=== PATIENT | male | born 1955 | race Caucasian/White ===

== ENCOUNTER 2017-01-16 17:46 | Emergency (ER) | payer BC ==
[2017-01-16 17:58] VITALS: BP 145/79
[2017-01-16] MEDS ORDERED: Sodium Chloride 0.9% 1,000 ML IV STA (18:13)
[2017-01-16] MEDS ORDERED: Sodium Chloride 0.9% 10 ML Syringe FLUSH PRN (18:13)
[2017-01-16] MEDS ORDERED: Insulin Regular, Human 100 Units/ML 3 ML Vial SUBCUT ONE (18:15)
--- NOTE | 2017-01-16 19:06 | EDM.PDOC ---
ED HPI GENERAL MEDICAL PROBLEM - General Chief Complaint: Diabetic Complaint Stated Complaint: HIGH BLOOD SUGAR Time Seen by Provider: 01/16/17 18:06 Source of Information: Reports: Patient History Limitations: Reports: No Limitations - History of Present Illness INITIAL COMMENTS - FREE TEXT/NARRATIVE: The patient presents with hyperglycemia. About 2 weeks ago he was diagnosed with type II diabetes and he was put on metformin. Before that he was put on steroids for some breathing issues and after that his blood sugar was elevated and he developed diabetes. He was admitted to a hospital in [place]. He has not been able to get his blood sugar below 200. It was about 360 earlier today and it is now 290. He has some blurred vision at times. He has thirst and he is urinating more often at times. He has no headache, chest pain or shortness of breath. He has no abdominal pain, nausea or vomiting. Onset: Gradual Duration: Week(s): Improves with: Reports: None Worsens with: Reports: None Associated Symptoms: Reports: No Other Symptoms - Related Data Allergies Allergy/AdvReac Type Severity Reaction Status Date / Time No Known Allergies Allergy Verified 01/16/17 17:58 Home Meds: Home Meds Aspirin 81 mg PO BRK 11/18/15 [History] Lisinopril/Hydrochlorothiazide [Lisinopril-Hctz 20-12.5 mg Tab] 20 mg PO DAILY 11/18/15 [History] Acyclovir 800 mg PO QID 01/16/17 [History] Apixaban [Eliquis] 5 mg PO BID 01/16/17 [History] Diltiazem HCl [Cardizem] 120 mg PO DAILY 01/16/17 [History] metFORMIN [Glucophage XR] 500 mg PO BID 01/16/17 [History] Past Medical History HEENT History: Reports: Impaired Vision Other HEENT History: glasses Cardiovascular History: Reports: Afib, Hypertension Respiratory History: Reports: Asthma Genitourinary History: Reports: Other (See Below) Other Genitourinary History: trouble urinating Musculoskeletal History: Reports: Arthritis Psychiatric History: Reports: Anxiety Endocrine/Metabolic History: Reports: Diabetes, Type II - Infectious Disease History Infectious Disease History: Reports: Shingles - Past Surgical History HEENT Surgical History: Reports: Other (See Below) GI Surgical History: Reports: Cholecystectomy, Hernia, Abdominal Musculoskeletal Surgical History: Reports: ORIF Social & Family History - Family History Family Medical History: Noncontributory - Tobacco Use Smoking Status *Q: Never Smoker Years of Tobacco use: 1 Packs/Tins Daily: 0.5 Used Tobacco, but Quit: Yes Month Tobacco Last Used: 1976 Second Hand Smoke Exposure: No - Caffeine Use Caffeine Use: Reports: Coffee - Alcohol Use Days Per Week of Alcohol Use: 7 Number of Drinks Per Day: 2 Total Drinks Per Week: 14 - Recreational Drug Use Recreational Drug Use: No Recreational Drug Type: Reports: Cocaine, Marijuana/Hashish Recreational Drug Use Frequency: Not Used In Over 6 Months Recreational Drug Last Use: 2008 - Living Situation & Occupation Living situation: Reports: Single, with Significant Other Occupation: Employed ED ROS GENERAL - Review of Systems Review Of Systems: See Below Constitutional: Reports: No Symptoms HEENT: Reports: Other (Blurred vision at times) Respiratory: Reports: No Symptoms Cardiovascular: Reports: No Symptoms Endocrine: Reports: Fatigue, High Glucose, Polydypsia, Polyuria GI/Abdominal: Reports: No Symptoms : Reports: No Symptoms Musculoskeletal: Reports: No Symptoms ED EXAM GENERAL NO PERIP PULSE - Physical Exam Exam: See Below Exam Limited By: No Limitations General Appearance: Alert, No Apparent Distress Ears: Normal External Exam Nose: Normal Inspection Head: Atraumatic, Normocephalic Neck: Normal Inspection Respiratory/Chest: No Respiratory Distress, Lungs Clear, Normal Breath Sounds Cardiovascular: Regular Rate, Rhythm, No Edema, No Murmur GI/Abdominal: Soft, Non-Tender, No Organomegaly, No Mass Back Exam: Normal Inspection Extremities: Normal Inspection Neurological: Alert, Oriented, No Motor/Sensory Deficits Course - Vital Signs Last Recorded V/S: Last Vital Signs Temp 97.4 F 01/16/17 17:52 Pulse 76 01/16/17 17:52 Resp 16 01/16/17 17:52 BP 145/79 H 01/16/17 17:52 Pulse Ox 95 01/16/17 17:52 - Orders/Labs/Meds Orders: Active Orders 24 hr Category Date Time Status Accu Check [Blood Glucose Check, Bedside] [RC] ONETIME Care 01/16/17 19:13 Active Accu Check [Blood Glucose Check, Bedside] [RC] ONETIME Care 01/16/17 20:06 Active Peripheral IV Care [RC] . DIRECTED Care 01/16/17 18:13 Active Insulin Regular, Human [HumuLIN R] Med 01/17/17 06:00 Active 3 unit SUBCUT BIDAC Sodium Chloride 0.9% [Saline Flush] Med 01/16/17 18:13 Active 10 ml FLUSH ASDIRECTED PRN Peripheral IV Insertion Adult [OM.PC] Stat Oth 01/16/17 18:13 Ordered Medication Orders Insulin Human Regular (Humulin R) 3 unit SUBCUT BIDAC SYDNEY PRN Reason: Protocol Last Admin: 01/16/17 19:30 Dose: 3 units Sodium Chloride (Saline Flush) 10 ml FLUSH ASDIRECTED PRN PRN Reason: Keep Vein Open Last Admin: 01/16/17 18:31 Dose: 10 ml Labs: Laboratory Tests 01/16/17 01/16/17 01/16/17 Range/Units 17:55 18:14 18:25 WBC 8.63 (4.23-9.07) K/mm3 RBC 4.28 L (4.63-6.08) M/mm3 Hgb 13.6 L (13.7-17.5) gm/L Hct 39.1 L (40.1-51.0) % MCV 91.4 (79.0-92.2) fl MCH 31.8 (25.7-32.2) pg MCHC 34.8 (32.2-35.5) g/dl RDW Std Deviation 47.2 H (35.1-43.9) fL Plt Count 149 L (163-337) K/mm3 MPV 11.2 (9.4-12.3) fl Neut % (Auto) 69.1 H (34.0-67.9) % Lymph % (Auto) 18.2 L (21.8-53.1) % [place] % (Auto) 11.5 (5.3-12.2) % Eos % (Auto) 0.8 (0.8-7.0) Baso % (Auto) 0.2 (0.1-1.2) % Neut # (Auto) 5.96 H (1.78-5.38) K/mm3 Lymph # (Auto) 1.57 (1.32-3.57) K/mm3 [place] # (Auto) 0.99 H (0.30-0.82) K/mm3 Eos # (Auto) 0.07 (0.04-0.54) K/mm3 Baso # (Auto) 0.02 (0.01-0.08) K/mm3 VBG pH 7.42 H (7.30-7.40) Sodium (136-145) mEq/L Potassium (3.5-5.1) mEq/L Chloride (98-107) mEq/L Carbon Dioxide (21-32) mEq/L Anion Gap (5-15) BUN (7-18) mg/dL Creatinine (0.7-1.3) mg/dL Est Cr Clr Drug Dosing mL/min Estimated GFR (MDRD) (>60) mL/min BUN/Creatinine Ratio (14-18) Glucose (80-115) mg/dL POC Glucose 290 H (80-115) mg/dL Serum Osmolality (280-300) mosm/kg Calcium (8.5-10.1) mg/dL Total Bilirubin (0.2-1.0) mg/dL AST (15-37) U/L ALT (16-63) U/L Alkaline Phosphatase (46-116) U/L Total Protein (6.4-8.2) g/dl Albumin (3.4-5.0) g/dl Globulin gm/dL Albumin/Globulin Ratio (1-2) Ketones (0.0-0.3) mM 01/16/17 01/16/17 01/16/17 Range/Units 18:25 18:25 19:16 WBC (4.23-9.07) K/mm3 RBC (4.63-6.08) M/mm3 Hgb (13.7-17.5) gm/L Hct (40.1-51.0) % MCV (79.0-92.2) fl MCH (25.7-32.2) pg MCHC (32.2-35.5) g/dl RDW Std Deviation (35.1-43.9) fL Plt Count (163-337) K/mm3 MPV (9.4-12.3) fl Neut % (Auto) (34.0-67.9) % Lymph % (Auto) (21.8-53.1) % [place] % (Auto) (5.3-12.2) % Eos % (Auto) (0.8-7.0) Baso % (Auto) (0.1-1.2) % Neut # (Auto) (1.78-5.38) K/mm3 Lymph # (Auto) (1.32-3.57) K/mm3 [place] # (Auto) (0.30-0.82) K/mm3 Eos # (Auto) (0.04-0.54) K/mm3 Baso # (Auto) (0.01-0.08) K/mm3 VBG pH (7.30-7.40) Sodium 134 L (136-145) mEq/L Potassium 3.6 (3.5-5.1) mEq/L Chloride 98 (98-107) mEq/L Carbon Dioxide 28 (21-32) mEq/L Anion Gap 11.6 (5-15) BUN 16 (7-18) mg/dL Creatinine 1.1 (0.7-1.3) mg/dL Est Cr Clr Drug Dosing 68.23 mL/min Estimated GFR (MDRD) > 60 (>60) mL/min BUN/Creatinine Ratio 14.5 (14-18) Glucose 326 H (80-115) mg/dL POC Glucose 260 H (80-115) mg/dL Serum Osmolality 302 H (280-300) mosm/kg Calcium 9.1 (8.5-10.1) mg/dL Total Bilirubin 0.4 (0.2-1.0) mg/dL AST 60 H (15-37) U/L ALT 158 H (16-63) U/L Alkaline Phosphatase 62 (46-116) U/L Total Protein 6.6 (6.4-8.2) g/dl Albumin 3.0 L (3.4-5.0) g/dl Globulin 3.6 gm/dL Albumin/Globulin Ratio 0.8 L (1-2) Ketones 0.225 (0.0-0.3) mM Meds: Medications Generic Name Dose Route Start Last Admin Trade Name Freq PRN Reason Stop Dose Admin Insulin Human Regular 3 unit 01/17/17 06:00 01/16/17 19:30 Humulin R SUBCUT 3 units BIDAC SYDNEY Administration Protocol Sodium Chloride 10 ml 01/16/17 18:13 01/16/17 18:31 Saline Flush FLUSH 10 ml ASDIRECTED PRN Administration Keep Vein Open Discontinued Medications Generic Name Dose Route Start Last Admin Trade Name Naeem PRN Reason Stop Dose Admin Sodium Chloride 1,000 mls @ 1,000 mls/hr 01/16/17 18:13 01/16/17 18:27 Normal Saline IV 01/16/17 19:12 1,000 mls/hr .BOLUS STA Administration Insulin Human Regular 4 unit 01/16/17 18:15 01/16/17 18:24 Humulin R SUBCUT 01/16/17 18:16 4 unit ONETIME ONE Administration Protocol - Re-Assessments/Exams Free Text/Narrative Re-Assessment/Exam: 01/16/17 19:12 I ordered an IV NS 1L bolus, insulin R 4 units subcutaneous, and labs. His CBC was negative. His pH was elevated at 7.42. His Na was a little low at 134. His glucose was elevated at 326. His serum osmolality was slightly elevated at 302. His AST was elevated at 60 and ALT was elevated at 158. His serum ketones were negative at 0.225. 01/16/17 20:06 His repeat blood sugar was 260. I will refer him to the oil spraying machine operator. I gave him more insulin R 3mgs subcutaneous. I will recheck his sugar soon and discharge him on more metformin and a oil spraying machine operator consult. 01/16/17 20:12 His repeat blood sugar was 213. Departure - Departure Time of Disposition: 20:20 Disposition: Home, Self-Care 01 Condition: Good Clinical Impression: Diabetes mellitus Qualifiers: Diabetes mellitus type: type 2 Diabetes mellitus complication status: without complication Diabetes mellitus intermediate insulin use: without intermediate use Qualified Code(s): E11.9 - Type 2 diabetes mellitus without complications - Discharge Information Instructions: Type 2 Diabetes Mellitus, Adult, [id number] Referrals: Doyle Thornton Jr, MD [Primary Care Provider] - Forms: ED Department Discharge Additional Instructions: Take 1,000mgs of metformin at night or 2 pills. Keep taking the 500mg or 1 pill in the morning. Continue with the rest of you medications as prescribed. I have put an order in to the oil spraying machine operator for a consult. She should call you with a time. Follow up with Dr Thornton within 1 week. - My Orders Last 24 Hours: My Active Orders 01/16/17 18:13 Peripheral IV Care [RC] . DIRECTED Sodium Chloride 0.9% [Saline Flush] 10 ml FLUSH ASDIRECTED PRN Peripheral IV Insertion Adult [OM.PC] Stat 01/16/17 19:13 Accu Check [Blood Glucose Check, Bedside] [RC] ONETIME 01/16/17 20:06 Accu Check [Blood Glucose Check, Bedside] [RC] ONETIME 01/17/17 06:00 Insulin Regular, Human [HumuLIN R] 3 unit SUBCUT BIDAC - Assessment/Plan Last 24 Hours: My Active Orders 01/16/17 18:13 Peripheral IV Care [RC] . DIRECTED Sodium Chloride 0.9% [Saline Flush] 10 ml FLUSH ASDIRECTED PRN Peripheral IV Insertion Adult [OM.PC] Stat 01/16/17 19:13 Accu Check [Blood Glucose Check, Bedside] [RC] ONETIME 01/16/17 20:06 Accu Check [Blood Glucose Check, Bedside] [RC] ONETIME 01/17/17 06:00 Insulin Regular, Human [HumuLIN R] 3 unit SUBCUT BIDAC
[2017-01-17] MEDS ORDERED: Insulin Regular, Human 100 Units/ML 3 ML Vial SUBCUT SCH (06:00)
== END 2017-01-16 20:22 | disposition home or self-care (01) ==
LOC: JD.ED 17:46
DX: E11.65 Type 2 diabetes mellitus with hyperglycemia (principal); I48.91 Unspecified atrial fibrillation; I10 Essential (primary) hypertension; J45.909 Unspecified asthma, uncomplicated; M19.90 Unspecified osteoarthritis, unspecified site; F41.9 Anxiety disorder, unspecified; Z79.84 Long term (current) use of oral hypoglycemic drugs; Z79.82 Long term (current) use of aspirin; Z79.899 Other long term (current) drug therapy; Z90.49 Acquired absence of other specified parts of digestive tract; Z98.890 Other specified postprocedural states
CPT/HCPCS: 36415; 80053; 82009; 82800; 82962; 83930; 85025; 96360; 96361; 96372; 99284; J1817; J7040; J7050; 99283

== ENCOUNTER 2017-01-21 21:27 | Emergency (ER) | payer BC ==
[2017-01-21 22:09] VITALS: BP 101/68
[2017-01-21] MEDS ORDERED: Sodium Chloride 0.9% 1,000 ML IV SCH (22:15)
--- NOTE | 2017-01-21 22:18 | EDM.PDOC ---
ED HPI GENERAL MEDICAL PROBLEM - General Chief Complaint: Neuro Symptoms/Deficits Stated Complaint: DIZZY,SICK TO STOMACH JUST DIAG WITH DIABETIES Time Seen by Provider: 01/21/17 22:13 Source of Information: Reports: Patient History Limitations: Reports: No Limitations - History of Present Illness INITIAL COMMENTS - FREE TEXT/NARRATIVE: 61-year-old male presents to the ED with generalized sense of feeling unwell. Note he was admitted the hospital a few weeks ago and diagnosed with new onset type 2 diabetes with a blood sugar of over 631 and he was also in atrial fibrillation with a heart rate of greater than 170. Inverted back to sinus rhythm about 2-1/2 days into his hospital stay on a Cardizem drip. 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 He attended the ED because he felt unwell developed diaphoresis nausea and weakness possibly representing a hypoglycemic reaction. He hasn't been doing a lot of exercise since discharge from hospital. He is on a very strict diet and he states she's lost 15 pounds of weight on the diabetic diet in the last couple of weeks. He is currently on metformin 1 g at bedtime and 500 mg in the morning and also was started on new medication on Monday by Dr. Thornton half a pill twice a day for his pancreas I presume it's a diabetic medication he doesn't know the name of it. Blood sugar this morning was 118 and this afternoon it went up to 147 and it was 180 after he ate tonight. Blood sugar in the department was 150. Orthostatic blood pressures are normal. Onset: Today, Sudden Onset Date: 01/21/17 Onset Time: 21:30 Duration: Minutes:, Improving Location: Reports: Generalized (Generalized sense of unwellness with weakness dizziness nausea etc. This occurred while he is in the workplace as a boilerhouse mechanic. He did not feel he was overdoing it as far as muscular work. 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 01/22/17 [Rx] Past Medical History HEENT History: Reports: Impaired Vision Other HEENT History: glasses Cardiovascular History: Reports: Afib, Hypertension Respiratory History: Reports: Asthma Genitourinary History: Reports: Other (See Below) Other Genitourinary History: trouble urinating Musculoskeletal History: Reports: Arthritis Psychiatric History: Reports: Anxiety Endocrine/Metabolic History: Reports: Diabetes, Type II - Infectious Disease History Infectious Disease History: Reports: Shingles - Past Surgical History HEENT Surgical History: Reports: Other (See Below) GI Surgical History: Reports: Cholecystectomy, Hernia, Abdominal Musculoskeletal Surgical History: Reports: ORIF Social & Family History - Family History Family Medical History: Noncontributory - Tobacco Use Smoking Status *Q: Never Smoker Years of Tobacco use: 1 Packs/Tins Daily: 0.5 Used Tobacco, but Quit: Yes Month Tobacco Last Used: 1976 Second Hand Smoke Exposure: No - Caffeine Use Caffeine Use: Reports: Coffee - Alcohol Use Days Per Week of Alcohol Use: 7 Number of Drinks Per Day: 2 Total Drinks Per Week: 14 - Recreational Drug Use Recreational Drug Use: No Recreational Drug Type: Reports: Cocaine, Marijuana/Hashish Recreational Drug Use Frequency: Not Used In Over 6 Months Recreational Drug Last Use: 2008 - Living Situation & Occupation Living situation: Reports: Single, with Significant Other Occupation: Employed ED ROS GENERAL - Review of Systems Review Of Systems: See Below Constitutional: Reports: Malaise, Weakness, Fatigue, Weight Loss (Reports she's lost 15 pounds of weight in the last 2 weeks on his strict diabetic diet.). Denies: Fever, Chills HEENT: Reports: Vision Change (When he came into hospital 2 weeks ago with his diabetes his vision was very blurred. Reports that it's slowly returning back to normal.) Respiratory: Denies: Shortness of Breath, Wheezing, Pleuritic Chest Pain, Cough , Sputum Cardiovascular: Reports: No Symptoms. Denies: Chest Pain Endocrine: Reports: Fatigue GI/Abdominal: Reports: Nausea (Mild onset of nausea when he felt unwell at work. ) : Reports: No Symptoms Musculoskeletal: Reports: No Symptoms Skin: Reports: No Symptoms Neurological: Reports: Dizziness. Denies: Tremors, Trouble Speaking (Sense of dizziness when he felt unwell.), Difficulty Walking, Change in Speech, Gait Disturbance Psychiatric: Reports: No Symptoms Hematologic/Lymphatic: Reports: No Symptoms Immunologic: Reports: No Symptoms ED EXAM, NEURO - Physical Exam Exam: See Below Exam Limited By: No Limitations General Appearance: Alert, WD/WN, Anxious, Mild Distress (Mildly anxious.) Eye Exam: Bilateral Eye: Normal Inspection Ears: Normal TMs Throat/Mouth: Normal Inspection, Normal Lips, Normal Oropharynx, Other Head Exam: Atraumatic, Normocephalic (Tongue is moist) Neck: Normal Inspection, Supple, Non-Tender, Full Range of Motion. No: Lymphadenopathy (L), Lymphadenopathy (R), Thyromegaly Respiratory/Chest: No Respiratory Distress, Lungs Clear, Normal Breath Sounds, No Accessory Muscle Use Cardiovascular: Normal Peripheral Pulses, Regular Rate, Rhythm, No Edema, No Murmur GI/Abdominal: Normal Bowel Sounds, Soft, Non-Tender, No Organomegaly, Other ( Has had previous laparoscopic cholecystectomy and repair of umbilical hernia with removal of most of his umbilicus.) Neurological: Alert, Normal Mood/Affect, Normal Dorsiflexion, CN II-XII Intact, Normal Plantar Flexion, Normal Gait, Normal Reflexes, No Motor/Sensory Deficits , Oriented x 3 Back Exam: Normal Inspection, Full Range of Motion Extremities: Normal Inspection, Normal Range of Motion, Non-Tender, Normal Capillary Refill Psychiatric: Normal Affect, Normal Mood Skin Exam: Warm, Dry, Normal Color, No Rash EKG INTERPRETATION EKG Date: 01/21/17 Time: 22:15 Rhythm: NSR Rate (Beats/Min): 74 [place]: Normal P-Wave: Enlarged (Consider left atrial enlargement.) QRS: Normal ST-T: Normal QT: Normal Course - Vital Signs Last Recorded V/S: Last Vital Signs Temp 36.3 C 01/21/17 22:04 Pulse 81 01/21/17 22:04 Resp 18 01/21/17 22:04 BP 101/68 01/21/17 22:04 Pulse Ox 99 01/21/17 22:04 Orthostatic Blood Pressure [ 115/61 Standing] Orthostatic Blood Pressure [ 115/72 Sitting] Orthostatic Blood Pressure [ 119/71 Supine] - Orders/Labs/Meds Orders: Active Orders 24 hr Category Date Time Status Blood Glucose Check, Bedside [RC] ONETIME Care 01/21/17 22:49 Active EKG Documentation Completion [RC] STAT Care 01/21/17 22:15 Active Orthostatic Vital Signs [RC] ASDIRECTED Care 01/21/17 22:14 Active Chest 1V Frontal [CR] Stat Exams 01/21/17 22:15 Taken Labs: Laboratory Tests 01/21/17 01/21/17 01/21/17 Range/Units 21:50 21:50 21:51 WBC 8.09 (4.23-9.07) K/mm3 RBC 4.58 L (4.63-6.08) M/mm3 Hgb 14.6 (13.7-17.5) gm/L Hct 41.5 (40.1-51.0) % MCV 90.6 (79.0-92.2) fl MCH 31.9 (25.7-32.2) pg MCHC 35.2 (32.2-35.5) g/dl RDW Std Deviation 48.1 H (35.1-43.9) fL Plt Count 156 L (163-337) K/mm3 MPV 11.3 (9.4-12.3) fl Neutrophils % (Manual) 80 H (40-60) % Band Neutrophils % 0 (0-10) % Lymphocytes % (Manual) 11 L (20-40) % Atypical Lymphs % 5 % Monocytes % (Manual) 2 (2-10) % Eosinophils % (Manual) 2 (0.8-7.0) % Basophils % (Manual) 0 L (0.2-1.2) Toxic Granulation 1+ slight Platelet Estimate Adequate Plt Morphology Comment Normal Poikilocytosis 1+ slight Anisocytosis 1+ slight Microcytosis 1+ slight Macrocytosis 1+ slight Tear Drop Cells 1+ slight RBC Morph Comment Abnormal Sodium 136 (136-145) mEq/L Potassium 3.5 (3.5-5.1) mEq/L Chloride 101 (98-107) mEq/L Carbon Dioxide 24 (21-32) mEq/L Anion Gap 14.5 (5-15) BUN 22 H (7-18) mg/dL Creatinine 1.7 H (0.7-1.3) mg/dL Est Cr Clr Drug Dosing 44.31 mL/min Estimated GFR (MDRD) 41 (>60) mL/min BUN/Creatinine Ratio 12.9 L (14-18) Glucose 198 H (80-115) mg/dL POC Glucose 180 H (80-115) mg/dL Calcium 9.9 (8.5-10.1) mg/dL Magnesium 1.5 L (1.8-2.4) mg/dl Total Bilirubin 0.8 (0.2-1.0) mg/dL AST 58 H (15-37) U/L ALT 159 H (16-63) U/L Alkaline Phosphatase 64 (46-116) U/L C-Reactive Protein < 0.2 (<1.0) mg/dL Pwe-G-[id number] Pept 169 H (0-125) pg/mL Total Protein 6.8 (6.4-8.2) g/dl Albumin 3.2 L (3.4-5.0) g/dl Globulin 3.6 gm/dL Albumin/Globulin Ratio 0.9 L (1-2) Lipase 236 (73-393) U/L Meds: Medications Discontinued Medications Generic Name Dose Route Start Last Admin Trade Name Freq PRN Reason Stop Dose Admin Sodium Chloride 1,000 mls @ 150 mls/hr 01/21/17 22:15 01/21/17 22:26 Normal Saline IV 150 mls/hr ASDIRECTED [place] Administration Magnesium Oxide 400 mg 01/22/17 00:32 01/22/17 00:44 Magnesium Oxide PO 01/22/17 00:33 400 mg ONETIME ONE Administration - Radiology Interpretation Free Text/Narrative:: 61-year-old male presents to the ED with a sense of unwellness. 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 He did not feel and he was over exerting himself. He is a newly diagnosed type II diabetic hospitalized 2 weeks ago with a sugar 631. He was also in rapid atrial fibrillation at 170+ at that admission. He is converted back to sinus rhythm and has remained in sinus rhythm since discharge from hospital. He is on aliquots however and Cardizem 120 mg once daily for rate control. He has lost 15 pounds on a strict diabetic diet over the last 2 weeks since discharge from hospital. He is currently on metformin 1 g at bedtime and one 500 mg in the morning. He was also started on a new medication on Monday by Dr. Thornton one half tablet twice daily he states for his pancreas. He is unsure what this medication was. Patient states that he developed diaphoresis dizziness and nausea while he was in the workplace elected to come to the hospital because he felt so unwell. Blood sugar here was 150. He has no signs of orthostatic hypotension. Examination is completely normal at this time. He is in sinus rhythm at 74/m. It's unlikely that he developed a transient hypoglycemic reaction with work tonight however this remains of possibility. Plan routine labs to be done IV normal saline at 150 mils per hour. One view chest x-ray will be done. - Re-Assessments/Exams Free Text/Narrative Re-Assessment/Exam: 01/21/17 23:00 ECG shows sinus rhythm at 74/m. Consider left atrial hypertrophy pattern. Otherwise normal ECG. 01/22/17 00:04 chest x-ray was within normal limits. White count is 8.09 with 80 % neutrophils and no bands. Hemoglobin 14.6 hematocrit of 41.5. Platelets are normal 1 56,000. Chemistry reveals a sodium of 136 potassium low-normal at 3.5 chloride 11 bicarbonate 24. Anion gap is 14.5 B1 is 22 creatinine is elevated at 1.7 within EGFR 41. Glucose at present is 198 in the lab. AST is 58 . ALT is 159. Lipase is normal at 236 magnesium is a little low at 1.5. 01/22/17 00:33 patient was asleep but I discussed his findings with him. My impression is that he did suffer a mild hypoglycemic reaction in the workplace tonight. No medication that was added on Monday by Dr. Thornton was identified to be glipizide 5 mg one half tablet twice a day. With his current 15 pound weight loss and strict diabetic diet and appreciating that his sugars seem to be lower every morning when he checks his blood sugars may be a little bit too aggressively controlled at present. His body is still making the adjustment to lower blood sugars compared to sugars in the 300- 500 range. Patient will be off work during remainder of tonight and return to work tomorrow. The only other finding was low serum magnesium and I will place my magnesium supplement magnesium oxide her Slow-Mag once daily. Departure - Departure Time of Disposition: 00:35 Disposition: Home, Self-Care 01 Condition: Fair Clinical Impression: Hypoglycemic reaction, Hypomagnesemia - Discharge Information Prescriptions: Magnesium Chloride [Slow-Mag] 71.5 mg PO DAILY #30 tablet.dr Instructions: Hypomagnesemia Referrals: Doyle Thornton Jr, MD [Primary Care Provider] - Forms: ED Department Discharge, ED Return to Work/School Form Additional Instructions: Evaluation in the emergency room tonight in regards to sudden onset of feeling dizzy lightheaded nausea and shaky and a bit diaphoretic or sweaty. This event occurred while in the workplace tonight. Recent diagnosis of type 2 diabetes and currently on 2 medications to control diabetes plus very strict diabetic diet. History of 15 pound weight loss in the last 2 weeks suggests you are following the diet very closely. Blood sugars are coming under excellent control. My overall impression is that you suffered a slightly low blood sugar tonight while you in the workplace or hypoglycemic reaction. This may have occurred even with a blood sugar in the 90-100 range since her body is still getting used to a normal blood sugar versus having sugars in the 300-500 range. Lab work did not show any adverse effects on the kidneys or liver from current medications. It did reveal a slightly low serum magnesium level at 1.5. It should be greater than 2.0. Therefore I would suggest starting a magnesium supplement and I wrote a prescription for Slow-Mag to be taken 1 tablet once daily like a vitamin supplement. It also helps control diabetes. If sugars continue to fall then we may have to stop the recent medication glipizide that was added 4 days ago. At this time it is okay to return to work tomorrow. Suggest taking your monitor with you and if you develop similar type symptoms check his sugar immediately to confirm that your blood sugar might be on the low side. Follow-up with personal doctor as planned. - My Orders Last 24 Hours: My Active Orders 01/21/17 22:14 Orthostatic Vital Signs [RC] ASDIRECTED 01/21/17 22:15 EKG Documentation Completion [RC] STAT Chest 1V Frontal [CR] Stat 01/21/17 22:49 Blood Glucose Check, Bedside [RC] ONETIME - Assessment/Plan Last 24 Hours: My Active Orders 01/21/17 22:14 Orthostatic Vital Signs [RC] ASDIRECTED 01/21/17 22:15 EKG Documentation Completion [RC] STAT Chest 1V Frontal [CR] Stat 01/21/17 22:49 Blood Glucose Check, Bedside [RC] ONETIME
[2017-01-22] MEDS ORDERED: Magnesium Oxide 400 MG Tab PO ONE (00:32)
--- NOTE | 2017-01-26 07:39 | CR ---
Chest: Frontal view of the chest was obtained. Comparison: Previous chest x-ray 07/14/16 and 03/28/13. Slight widening of the mediastinum is seen which appears stable back to 2012 and therefore felt to be incidental. Heart size is normal. Lungs are clear. Bony structures are grossly intact. Impression: 1. Nothing acute is appreciated on frontal chest x-ray. Diagnostic code #2
== END 2017-01-22 00:45 | disposition home or self-care (01) ==
LOC: JD.ED 21:27
DX: E83.42 Hypomagnesemia (principal); E11.649 Type 2 diabetes mellitus with hypoglycemia without coma; I48.91 Unspecified atrial fibrillation; I10 Essential (primary) hypertension; J45.909 Unspecified asthma, uncomplicated; F41.9 Anxiety disorder, unspecified; M19.90 Unspecified osteoarthritis, unspecified site; Z79.899 Other long term (current) drug therapy; Z79.84 Long term (current) use of oral hypoglycemic drugs; Z90.49 Acquired absence of other specified parts of digestive tract; Z79.82 Long term (current) use of aspirin
CPT/HCPCS: 36415; 71010; 80053; 82962; 83690; 83735; 83880; 85025; 86140; 93005; 96360; 96361; 99285; A9270; J7040; 99284

== ENCOUNTER 2017-08-10 08:19 | Emergency (ER) | payer BC ==
--- NOTE | 2017-08-10 09:02 | EDM.PDOC ---
<Marilee Rod - Last Filed: 08/10/17 08:55> ED HPI GENERAL MEDICAL PROBLEM - General Chief Complaint: Respiratory Problem Stated Complaint: [facility] Time Seen by Provider: 08/10/17 08:34 - History of Present Illness INITIAL COMMENTS - FREE TEXT/NARRATIVE: Patient is a 61 year old male brought here by EMS for fall 2 days ago. Patient states he fell down 3 stairs at home and his pain has been getting worse since then. He denies hitting his head or LOC. His pain is mostly on the left side of his ribs and has been moving toward the middle of his chest. He complains of SOB and pain with deep breathing. He had associated nausea last night. He also has some minor neck pain. He denies numbness or tingling, or pain down his shoulder, arm, or leg. He denies bowel or bladder dysfunction, or vision or hearing changes. He has been taking tylenol and motrin for the pain with minimal relief, but ran out last night. He denies previous injuries or falls. He has a history of diabetes, Afib, and HTN. He did not take his medications this morning. He is a former smoker with a 20 year pack history. 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: IV/IO, Other (see below) Other Treatments CUT OUT PRESS OPERATOR: fentanyl left rib area Pain Score (Numeric/FACES): 10 - Related Data Allergies Allergy/AdvReac Type Severity Reaction Status Date / Time No Known Allergies Allergy Verified 08/10/17 08:29 Home Meds: Home Meds Aspirin 81 mg PO BRK 11/18/15 [History] Lisinopril/Hydrochlorothiazide [Lisinopril-Hctz 20-12.5 mg Tab] 20 mg PO DAILY 11/18/15 [History] Diltiazem HCl [Cardizem] 120 mg PO DAILY 01/16/17 [History] metFORMIN [Glucophage XR] 1,000 mg PO BID 01/16/17 [History] Acetaminophen/HYDROcodone [[place] 325-5 MG] 1 tab PO Q6H PRN #30 tablet 08/10/17 [Rx] Amoxicillin 250 mg PO TID 08/10/17 [History] Multivitamin [Multivitamins] 1 each PO DAILY 08/10/17 [History] Past Medical History HEENT History: Reports: Impaired Vision Other HEENT History: glasses Cardiovascular History: Reports: Afib, Hypertension Respiratory History: Reports: Asthma Genitourinary History: Reports: Other (See Below) Other Genitourinary History: trouble urinating Musculoskeletal History: Reports: Arthritis Psychiatric History: Reports: Anxiety Endocrine/Metabolic History: Reports: Diabetes, Type II - Infectious Disease History Infectious Disease History: Reports: Shingles - Past Surgical History HEENT Surgical History: Reports: Other (See Below) GI Surgical History: Reports: Cholecystectomy, Hernia, Abdominal Musculoskeletal Surgical History: Reports: ORIF Social & Family History - Family History Family Medical History: Noncontributory - Tobacco Use Smoking Status *Q: Former Smoker Years of Tobacco use: 1 Packs/Tins Daily: 0.5 Used Tobacco, but Quit: No Month Tobacco Last Used: 1976 Second Hand Smoke Exposure: No - Caffeine Use Caffeine Use: Reports: None - Alcohol Use Days Per Week of Alcohol Use: 7 Number of Drinks Per Day: 2 Total Drinks Per Week: 14 - Recreational Drug Use Recreational Drug Use: No Recreational Drug Type: Reports: Cocaine, Marijuana/Hashish Recreational Drug Use Frequency: Not Used In Over 6 Months Recreational Drug Last Use: 2008 - Living Situation & Occupation Living situation: Reports: Single, with Significant Other Occupation: Employed ED ROS GENERAL - Review of Systems Review Of Systems: See Below Constitutional: Reports: No Symptoms HEENT: Reports: No Symptoms Respiratory: Reports: Shortness of Breath, Pleuritic Chest Pain Cardiovascular: Reports: Chest Pain GI/Abdominal: Reports: Nausea. Denies: Abdominal Pain, Vomiting Musculoskeletal: Reports: Neck Pain, Other (left rib pain). Denies: Shoulder Pain, Arm Pain, Back Pain, Leg Pain Neurological: Reports: Headache. Denies: Numbness, Syncope, Tingling Psychiatric: Reports: No Symptoms ED EXAM, GENERAL - Physical Exam Exam Limited By: No Limitations General Appearance: Alert, Mild Distress Ears: Normal External Exam Nose: Normal Inspection Throat/Mouth: Normal Inspection Head: Atraumatic Neck: Normal Inspection, Tender Lateral (left sided) Respiratory/Chest: Lungs Clear, Normal Breath Sounds Cardiovascular: Normal Peripheral Pulses, Regular Rate, Rhythm, No Murmur GI/Abdominal: Normal Bowel Sounds, Soft, Non-Tender Extremities: Normal Inspection, Normal Range of Motion, Non-Tender, Normal Capillary Refill Neurological: Alert, Oriented Psychiatric: Normal Affect, Normal Mood Course - Vital Signs Last Recorded V/S: Last Vital Signs Temp 97.7 F 08/10/17 10:25 Pulse 84 08/10/17 10:25 Resp 18 08/10/17 10:25 BP 147/89 H 08/10/17 10:25 Pulse Ox 97 08/10/17 10:25 - Orders/Labs/Meds Labs: Laboratory Tests 08/10/17 Range/Units 09:40 WBC 6.64 (4.23-9.07) K/mm3 RBC 4.99 (4.63-6.08) M/mm3 Hgb 15.3 (13.7-17.5) gm/L Hct 44.6 (40.1-51.0) % MCV 89.4 (79.0-92.2) fl MCH 30.7 (25.7-32.2) pg MCHC 34.3 (32.2-35.5) g/dl RDW Std Deviation 45.1 H (35.1-43.9) fL Plt Count 203 (163-337) K/mm3 MPV 10.8 (9.4-12.3) fl Neut % (Auto) 72.7 H (34.0-67.9) % Lymph % (Auto) 15.5 L (21.8-53.1) % [place] % (Auto) 10.2 (5.3-12.2) % Eos % (Auto) 0.9 (0.8-7.0) Baso % (Auto) 0.5 (0.1-1.2) % Neut # (Auto) 4.83 (1.78-5.38) K/mm3 Lymph # (Auto) 1.03 L (1.32-3.57) K/mm3 [place] # (Auto) 0.68 (0.30-0.82) K/mm3 Eos # (Auto) 0.06 (0.04-0.54) K/mm3 Baso # (Auto) 0.03 (0.01-0.08) K/mm3 Meds: Medications Discontinued Medications Generic Name Dose Route Start Last Admin Trade Name Freq PRN Reason Stop Dose Admin Morphine Sulfate 4 mg 08/10/17 09:05 08/10/17 09:20 Morphine IVPUSH 08/10/17 09:06 4 mg ONETIME ONE Administration Morphine Sulfate 2 mg 08/10/17 10:17 08/10/17 10:24 Morphine IVPUSH 08/10/17 10:18 2 mg ONETIME ONE Administration Departure - Departure Disposition: Home, Self-Care 01 Clinical Impression: Fall Qualifiers: Encounter type: initial encounter Qualified Code(s): W19.XXXA - Unspecified fall, initial encounter Multiple rib fractures Qualifiers: Encounter type: initial encounter Fracture type: closed Laterality: left Qualified Code(s): S22.42XA - Multiple fractures of ribs, left side, initial encounter for closed fracture - Discharge Information Prescriptions: Acetaminophen/HYDROcodone [[place] 325-5 MG] 1 tab PO Q6H PRN #30 tablet PRN Reason: Pain Instructions: Rib Fracture, [id number] Referrals: Doyle Thornton Jr, MD [Primary Care Provider] - Forms: ED Department Discharge, ED Return to Work/School Form Additional Instructions: Rest, avoid heavy lifting until discomfort resolving. It is expected that it will take 3-4 weeks for your rib fractures to heal. Tylenol up to 3 times daily for mild to moderate discomfort or hydrocodone if needed for more severe pain. Do not take the hydrocodone and Tylenol at the same time. Off work until next Monday. Then no heavy lifting or lifting more than 20 pounds recommended for the following 10 days or until severe discomfort resolving. He may use Bal wrap around her chest for discomfort. Be sure to take deep breaths every 2-3 hours to keep your lungs expanded. Follow-up clinic in about 2 weeks if not much better as expected. Return to ED as needed. <Andreas Nam - Last Filed: 08/10/17 17:18> ED EXAM, GENERAL - Physical Exam Exam: See Below Respiratory/Chest: Other (Tender left lateral chest wall, no bruising swelling visible) Back Exam: No: CVA Tenderness (L), CVA Tenderness (R) Skin Exam: Warm, Dry, Normal Color Course - Re-Assessments/Exams Free Text/Narrative Re-Assessment/Exam: 08/10/17 10:21 Initial hx, exam performed by Marilee [employer]INNER student. I agree with her hx and exam as documented. I have also examined and obtained hx from patient. Chest x-ray looks normal. Ribs show 2 hairline nondisplaced fractures left lower ribs. See radiology report for details. We have given morphine 4 mg IV. That has helped him. We'll give another 2 mg dose prior to discharge. Discharge instructions as documented. Departure - Departure Time of Disposition: 10:24 Condition: Fair
[2017-08-10] MEDS ORDERED: Morphine 2 MG/ML Syringe IVPUSH ONE ×2 (09:05→10:17)
--- NOTE | 2017-08-10 09:45 | CR ---
Chest and left ribs: Frontal view of the chest was obtained as well as 4 additional views of the left ribs. Comparison: Prior chest x-ray of 01/21/17. Heart size is normal. Slightly prominent superior mediastinum is seen which remains stable. Lungs are clear with no acute parenchymal densities. Fractures are seen within the left 9th and 10th ribs. No significant displacement is seen. No additional rib abnormality is definitely appreciated. Minimal scattered endplate osteophytes seen within the thoracic spine. Impression: 1. Two nondisplaced left lower rib fractures. 2. Nothing acute is otherwise seen on frontal chest x-ray. Diagnostic code #3
[2017-08-10 10:26] VITALS: BP 147/89
== END 2017-08-10 10:40 | disposition home or self-care (01) ==
LOC: JD.ED 08:19
DX: S22.42XA Multiple fractures of ribs, left side, initial encounter for closed fracture (principal); E11.9 Type 2 diabetes mellitus without complications; I10 Essential (primary) hypertension; Z79.899 Other long term (current) drug therapy; Z79.84 Long term (current) use of oral hypoglycemic drugs; Z87.891 Personal history of nicotine dependence; W10.9XXA Fall (on) (from) unspecified stairs and steps, initial encounter
CPT/HCPCS: 36415; 71101; 85025; 96374; 96376; 99284; J2270

== ENCOUNTER 2017-08-14 11:32 | Emergency (ER) | payer BC ==
[2017-08-14 11:46] VITALS: BP 152/88
[2017-08-14] MEDS ORDERED: Ketorolac 60 MG/2 ML SDV IM ONE (13:07)
[2017-08-14] MEDS ORDERED: Acetaminophen 325 MG Tab PO ONE (13:07)
--- NOTE | 2017-08-14 13:26 | EDM.PDOC ---
ED HPI GENERAL MEDICAL PROBLEM - General Chief Complaint: General Stated Complaint: RIB INJURY-PAIN MEDS NOT WORKING Time Seen by Provider: 08/14/17 11:51 Source of Information: Reports: Patient, RN Notes Reviewed - History of Present Illness INITIAL COMMENTS - FREE TEXT/NARRATIVE: 61 year old male fell, fracture 2 distal ribs 6 days ago L lower rib cage. Evaluated here in the ED 4 days ago. See that record for details. Still having a lot of pain with certain types of motion. Hydrocodone prescribed has been making feel nauseated. Tylenol not giving good pain relief. Not short of breath. No other unusual sx. Left Chest Pain Score (Numeric/FACES): 9 - Related Data Allergies Allergy/AdvReac Type Severity Reaction Status Date / Time No Known Allergies Allergy Verified 08/10/17 08:29 Home Meds: Home Meds Aspirin 81 mg PO BRK 11/18/15 [History] Lisinopril/Hydrochlorothiazide [Lisinopril-Hctz 20-12.5 mg Tab] 20 mg PO DAILY 11/18/15 [History] Diltiazem HCl [Cardizem] 120 mg PO DAILY 01/16/17 [History] metFORMIN [Glucophage XR] 1,000 mg PO BID 01/16/17 [History] Acetaminophen/HYDROcodone [[place] 325-5 MG] 1 tab PO Q6H PRN #30 tablet 08/10/17 [Rx] Amoxicillin 250 mg PO TID 08/10/17 [History] Multivitamin [Multivitamins] 1 each PO DAILY 08/10/17 [History] Past Medical History HEENT History: Reports: Impaired Vision Other HEENT History: glasses Cardiovascular History: Reports: Afib, Hypertension Respiratory History: Reports: Asthma Genitourinary History: Reports: Other (See Below) Other Genitourinary History: trouble urinating Musculoskeletal History: Reports: Arthritis Psychiatric History: Reports: Anxiety Endocrine/Metabolic History: Reports: Diabetes, Type II - Infectious Disease History Infectious Disease History: Reports: Shingles - Past Surgical History HEENT Surgical History: Reports: Other (See Below) GI Surgical History: Reports: Cholecystectomy, Hernia, Abdominal Musculoskeletal Surgical History: Reports: ORIF Social & Family History - Family History Family Medical History: Noncontributory - Tobacco Use Smoking Status *Q: Former Smoker Years of Tobacco use: 1 Packs/Tins Daily: 0.5 Used Tobacco, but Quit: No Month Tobacco Last Used: 1976 Second Hand Smoke Exposure: No - Caffeine Use Caffeine Use: Reports: None - Alcohol Use Days Per Week of Alcohol Use: 7 Number of Drinks Per Day: 2 Total Drinks Per Week: 14 - Recreational Drug Use Recreational Drug Use: No Recreational Drug Type: Reports: Cocaine, Marijuana/Hashish Recreational Drug Use Frequency: Not Used In Over 6 Months Recreational Drug Last Use: 2008 - Living Situation & Occupation Living situation: Reports: Single, with Significant Other Occupation: Employed ED ROS GENERAL - Review of Systems Review Of Systems: See Below Constitutional: Denies: Fever, Chills, Diaphoresis HEENT: Denies: Throat Pain Respiratory: Reports: Pleuritic Chest Pain. Denies: Shortness of Breath, Wheezing Cardiovascular: Reports: Chest Pain (L lower chest) GI/Abdominal: Reports: Nausea (gone). Denies: Abdominal Pain Musculoskeletal: Denies: Back Pain, Joint Pain Skin: Reports: No Symptoms Neurological: Reports: No Symptoms ED EXAM, GENERAL - Physical Exam Exam: See Below General Appearance: Alert, No Apparent Distress Throat/Mouth: Normal Inspection, Normal Oropharynx Head: Atraumatic. No: Facial Swelling Neck: Supple, Full Range of Motion Respiratory/Chest: No Respiratory Distress, Other (tender L lower lateral chest wall, no bruising or swelling) Cardiovascular: Regular Rate, Rhythm GI/Abdominal: Soft, Non-Tender. No: Guarding Back Exam: No: CVA Tenderness (L), CVA Tenderness (R) Extremities: Normal Inspection, Normal Range of Motion Skin Exam: Warm, Dry, Normal Color Course - Vital Signs Last Recorded V/S: Last Vital Signs Temp 96.7 F 08/14/17 11:43 Pulse 58 L 08/14/17 11:43 Resp BP 152/88 H 08/14/17 11:43 Pulse Ox 99 08/14/17 11:43 - Orders/Labs/Meds Meds: Medications Discontinued Medications Generic Name Dose Route Start Last Admin Trade Name Leoq PRN Reason Stop Dose Admin Acetaminophen 975 mg 08/14/17 13:07 08/14/17 13:16 Tylenol PO 08/14/17 13:08 975 mg NOW ONE Administration Ketorolac Tromethamine 60 mg 08/14/17 13:07 08/14/17 13:18 Toradol IM 08/14/17 13:08 60 mg ONETIME ONE Administration - Re-Assessments/Exams Free Text/Narrative Re-Assessment/Exam: 08/14/17 15:15 CXR today looks good, discharge instr. as documented. Departure - Departure Time of Disposition: :18 Disposition: Home, Self-Care 01 Condition: Fair Clinical Impression: Rib fractures Qualifiers: Encounter type: subsequent encounter Rib fracture type: multiple ribs Fracture type: closed Laterality: left Fracture healing: with routine healing Qualified Code(s): S22.42XD - Multiple fractures of ribs, left side, subsequent encounter for fracture with routine healing - Discharge Information Instructions: Rib Fracture, [id number] Referrals: Doyle Thornton Jr, MD [Primary Care Provider] - Forms: ED Department Discharge Additional Instructions: rest, continue to avoid heavy lifting, for pain take 1/2 tablet percocet q4 to 6 hr as needed for severe pain, be sure to take that with food, you may also take OTC pepcid or zantac once or twice daily to help protect your stomach. As discussed your rib fractures will take another 2 to 3 weeks to heal but pain should be getting much better over the next 1 to 2 weeks. Follow up clinic as needed, return to ED as needed.
--- NOTE | 2017-08-14 13:36 | CR ---
Chest: Frontal view of the chest was obtained. Comparison: Prior chest x-ray of 01/21/17. Superior mediastinum is prominent which appears stable from old chest x-ray. Heart size is normal. Lungs are clear. Bony structures are grossly intact. Impression: 1. Nothing acute is seen. Diagnostic code #2
== END 2017-08-14 13:37 | disposition home or self-care (01) ==
LOC: JD.ED 11:32
DX: S22.42XD Multiple fractures of ribs, left side, subsequent encounter for fracture with routine healing (principal); I10 Essential (primary) hypertension; I48.91 Unspecified atrial fibrillation; E11.9 Type 2 diabetes mellitus without complications; J45.909 Unspecified asthma, uncomplicated; Z87.891 Personal history of nicotine dependence; Z79.84 Long term (current) use of oral hypoglycemic drugs; Z79.899 Other long term (current) drug therapy; W19.XXXD Unspecified fall, subsequent encounter
CPT/HCPCS: 71045; 96372; 99283; A9270; J1885

== ENCOUNTER 2019-08-08 06:53 | Emergency (ER) | payer BC, OTHER ==
[2019-08-08 07:13] VITALS: BP 155/89; PULSE 70
--- NOTE | 2019-08-08 07:33 | EDM.PDOC ---
ED HPI GENERAL MEDICAL PROBLEM - General Chief Complaint: Upper Extremity Injury/Pain Stated Complaint: LT WRIST PAIN Time Seen by Provider: 08/08/19 07:28 Source of Information: Reports: Patient History Limitations: Reports: No Limitations - History of Present Illness INITIAL COMMENTS - FREE TEXT/NARRATIVE: Mr. Brizuela is a most pleasant 63-year-old man with a past medical history significant for hypertension, paroxysmal atrial fibrillation, arthritis, and diabetes, who states that he was shoveling fertilizer 2 days ago, Monday, 2019. He then developed volar left wrist pain yesterday morning, Monday, 08/06. He states that he was seen at the walk-in clinic. No x-rays were performed, but he was given an injection of some medicine that he believes started with the letter "M". No prescriptions were written. The patient now presents to the ED because his pain has persisted. No paresthesia. No trauma to the wrist, other than shoveling. No prior similar symptoms. Of note, the patient has a history of paroxysmal atrial fibrillation, but is not on an anticoagulant. He states that he originally was, when diagnosed in [place], but once the prescription ran out, it was not refilled. Additionally, the patient may have a history of BPH; he reports having to get up in the middle of the night to urinate, but is not on any medicines for that. Lastly, the patient has a history of diabetes, treated with metformin BID. He states that he checks his blood glucose probably less than once a month. The last time he checked it was probably more than 1 month ago, and he believes it was about 176. The patient denies recent fever, chills, cough, dyspnea, chest pain, palpitations, nausea, vomiting, constipation, diarrhea, abdominal pain, urinary symptoms, recent weight gain or weight loss, recent bloody bowel movements or black bowel movements, recent joint aches, headaches, or rashes. The patient's PCP is Dr. Papi Barboza. He received an influenza vaccine this season. Left Wrist Pain Score (Numeric/FACES): 10 - Related Data Allergies Allergy/AdvReac Type Severity Reaction Status Date / Time No Known Allergies Allergy Verified 08/08/19 07:13 Home Meds: Home Meds Aspirin 81 mg PO BRK 11/18/15 [History] Lisinopril/Hydrochlorothiazide [Lisinopril-Hctz 20-12.5 mg Tab] 20 mg PO DAILY 11/18/15 [History] Diltiazem HCl [Cardizem] 120 mg PO DAILY 01/16/17 [History] metFORMIN [Glucophage XR] 1,000 mg PO BID 01/16/17 [History] Acetaminophen/HYDROcodone [[place] 325-5 MG] 1 tab PO Q6H PRN #30 tablet 08/10/17 [Rx] Amoxicillin 250 mg PO TID 08/10/17 [History] Multivitamin [Multivitamins] 1 each PO DAILY 08/10/17 [History] Acetaminophen/HYDROcodone [[place] 325-5 MG] 1 - 2 tab PO Q6H PRN #16 tablet 08/07 [Rx] Past Medical History HEENT History: Reports: Impaired Vision Other HEENT History: wears glasses Cardiovascular History: Reports: Afib (paroxysmal), Hypertension Genitourinary History: Reports: BPH (likely, untreated) Musculoskeletal History: Reports: Arthritis Endocrine/Metabolic History: Reports: Diabetes, Type II - Infectious Disease History Infectious Disease History: Reports: Shingles - Past Surgical History HEENT Surgical History: Reports: Oral Surgery (2 wisdom teeth extracted), Other (See Below) (Mandible plates) GI Surgical History: Reports: Cholecystectomy (around 2016), Hernia, Abdominal ( periumbilical) Musculoskeletal Surgical History: Reports: ORIF (left femur) Social & Family History - Family History Family Medical History: Noncontributory - Tobacco Use Smoking Status *Q: Former Smoker Years of Tobacco use: 4 Packs/Tins Daily: 0.5 Month/Year Tobacco Last Used: Quit 1976 - Caffeine Use Caffeine Use: Reports: Coffee - Alcohol Use Alcohol Use History: Yes Alcohol Use Frequency: Socially (occasionally to excess) - Recreational Drug Use Recreational Drug Use: Yes Drug Use in Last 12 Months: No Recreational Drug Type: Reports: Marijuana/Hashish (las smoked around 2004) - Living Situation & Occupation Living situation: Reports: , with Significant Other (Girlfriend) Occupation: Employed ([employer]) Review of Systems - Review of Systems Review Of Systems: Comprehensive ROS is negative, except as noted in HPI. ED EXAM, GENERAL - Physical Exam Exam: See Below Exam Limited By: No Limitations General Appearance: Alert, WD/WN, No Apparent Distress Extremities: Other (No visible abnormality to the patient's left wrist, such as swelling, erythema, ecchymosis, or abrasion. The patient has considerable tenderness to palpation of the volar aspect of the wrist, but none to the dorsal aspect. Pain is induced with passive extension or active flexion of the left wrist. No considerable pain induced with passive flexion or active extension. Neurovascular status of the left upper extremity is intact.) Course - Vital Signs Last Recorded V/S: Last Vital Signs Temp 36.2 C 08/08/19 07:11 Pulse 70 08/08/19 07:11 Resp 18 08/08/19 07:11 BP 155/89 H 08/08/19 07:11 Pulse Ox 96 08/08/19 07:11 - Orders/Labs/Meds Orders: Active Orders 24 hr Category Date Time Status Wrist 2V Lt [CR] Stat Exams 08/08/19 07:29 Taken - Re-Assessments/Exams Free Text/Narrative Re-Assessment/Exam: 08/08/19 07:32 Patient appears to have a strain of the volar aspect of his left wrist. I have ordered wrist x-rays to rule out an occult fracture. 08/08/19 07:51 2-view radiographs of the left wrist were reviewed. No fractures or dislocations identified. Bone density appears to be osteopenic. Arteriosclerosis noted. Formal read per the Radiologist pending. 08/08/19 08:05 X-ray results discussed with the patient. As above, the patient appears to have strained the volar aspect of his left wrist. I will start him on over-the- counter ibuprofen, and write a prescription for some [place] that he can take in addition. Because the patient drove himself here, we cannot give him any at this time. I would like the patient to ice his wrist, and if his wrist does not get better by next week, I would like him to follow-up with Ortho. Departure - Departure Time of Disposition: 08:07 Disposition: Home, Self-Care 01 Condition: Good Clinical Impression: Left wrist sprain - Discharge Information *PRESCRIPTION DRUG MONITORING PROGRAM REVIEWED*: Not Applicable *COPY OF PRESCRIPTION DRUG MONITORING REPORT IN PATIENT DIANE: Not Applicable Prescriptions: Acetaminophen/HYDROcodone [[place] 325-5 MG] 1 - 2 tab PO Q6H PRN #16 tablet PRN Reason: Pain (Severe 7-10) Referrals: Papi Barboza MD [Primary Care Provider] - Forms: ED Department Discharge Additional Instructions: You were seen in the emergency room for left wrist pain after shoveling. Work-up in the ER included x-rays of your left wrist, which found no broken bones or dislocations. Based on your history, physical exam, and ER x-rays, the cause of your left wrist pain is most likely strain. You have been started on [id number] ibuprofen. We recommend that you take 3 tablets (600 mg) of ibuprofen every 8 hours, with food, [id number] , until your wrist feels better. In addition, you have been prescribed the opioid pain reliever [place]. Take 1 to 2 tablets of [place] up to every 6 hours, as needed for pain not relieved by ibuprofen. If you take [place], do not drive or operate heavy machinery for 12 hours afterwards. [place] may cause constipation, so consider taking a stool softener. We recommend that you ice your left wrist as much as possible over the weekend. If your wrist is still painful by next week, please follow-up with the orthopedic surgeon Dr. Justin Culver. As discussed, we recommend that you follow-up with your PCP, Dr. Papi Barboza to discuss your atrial fibrillation, and whether or not you should be on a blood thinner, and your enlarged prostate, and whether you might benefit from being on a prostate medicine. If any other problems, please do not hesitate to return to the ER. Sepsis Event Note - Evaluation Sepsis Screening Result: No Definite Risk - Focused Exam Vital Signs: Vital Signs Temp Pulse Resp BP Pulse Ox 08/08/19 07:11 36.2 C 70 18 155/89 H 96 Date Exam was Performed: 08/08/19 Time Exam was Performed: 07:51 - My Orders Last 24 Hours: My Active Orders 08/08/19 07:29 Wrist 2V Lt [CR] Stat - Assessment/Plan Last 24 Hours: My Active Orders 08/08/19 07:29 Wrist 2V Lt [CR] Stat
[2019-08-08] MEDS ORDERED: Ibuprofen 600 MG Tab PO ONE (08:06)
--- NOTE | 2019-08-08 08:40 | CR ---
Left wrist: Two views of the left wrist were obtained. Comparison: No prior wrist exam. Collapse of the lunate bone is seen most likely due to avascular necrosis. Cyst is noted within the triquetrium which is felt to be benign. Osteopenia is seen. Vascular calcification is noted. No additional abnormality is seen. Impression: 1. Collapse of the lunate bone most likely due to avascular necrosis. 2. Other findings believed to be incidental as noted above. Diagnostic code #3 This report was dictated in [place] Standard Time
== END 2019-08-08 08:20 | disposition home or self-care (01) ==
LOC: JD.ED 06:53
DX: S63.502A Unspecified sprain of left wrist, initial encounter (principal); I48.91 Unspecified atrial fibrillation; I10 Essential (primary) hypertension; M19.90 Unspecified osteoarthritis, unspecified site; E11.9 Type 2 diabetes mellitus without complications; Z79.84 Long term (current) use of oral hypoglycemic drugs; Z79.899 Other long term (current) drug therapy; Z87.891 Personal history of nicotine dependence; X50.9XXA Other and unspecified overexertion or strenuous movements or postures, initial encounter
CPT/HCPCS: 73100; 99283; A9270

== ENCOUNTER 2019-08-11 10:36 | Emergency (ER) | payer SELFPAY ==
[2019-08-11 10:47] VITALS: BP 164/97; PULSE 63
--- NOTE | 2019-08-11 11:21 | EDM.PDOC ---
ED HPI GENERAL MEDICAL PROBLEM - General Chief Complaint: Upper Extremity Injury/Pain Stated Complaint: LT WRIST PAIN Time Seen by Provider: 08/11/19 10:49 Source of Information: Reports: Patient History Limitations: Reports: No Limitations - History of Present Illness INITIAL COMMENTS - FREE TEXT/NARRATIVE: The patient presents with left wrist pain. He says he was shoveling manure last and after that developed pain and swelling to the left wrist. He was seen at the walk in clinic and they gave him a shot for pain and no x-ray. He was seen here 3 days ago and an x-ray was done and it was read by the provider as no fracture. The official read by Dr Ulloa shows collapse of the lunate bone due to avascular necrosis. He is still having pain and swelling. He is right handed. Onset: Gradual Duration: Day(s): Location: Reports: Upper Extremity, Left (wrist) Quality: Reports: Sharp Severity: Moderate Improves with: Reports: Immobilization Worsens with: Reports: Movement Context: Reports: Trauma (shoveling manure) Associated Symptoms: Reports: No Other Symptoms Left Wrist Pain Score (Numeric/FACES): 9 - Related Data Allergies Allergy/AdvReac Type Severity Reaction Status Date / Time No Known Allergies Allergy Verified 08/11/19 10:54 Home Meds: Home Meds Aspirin 81 mg PO BRK 11/18/15 [History] Lisinopril/Hydrochlorothiazide [Lisinopril-Hctz 20-12.5 mg Tab] 20 mg PO DAILY 11/18/15 [History] Diltiazem HCl [Cardizem] 120 mg PO DAILY 01/16/17 [History] metFORMIN [Glucophage XR] 1,000 mg PO BID 01/16/17 [History] Acetaminophen/HYDROcodone [[place] 325-5 MG] 1 tab PO Q6H PRN #30 tablet 08/10/17 [Rx] Amoxicillin 250 mg PO TID 08/10/17 [History] Multivitamin [Multivitamins] 1 each PO DAILY 08/10/17 [History] oxyCODONE HCl/Acetaminophen [Percocet 5-325 mg Tablet] 1 - 2 each PO Q6HR PRN # 20 tablet 08/11/19 [Rx] Past Medical History HEENT History: Reports: Impaired Vision Other HEENT History: glasses Cardiovascular History: Reports: Afib, Hypertension Respiratory History: Reports: Asthma Genitourinary History: Reports: Other (See Below) Other Genitourinary History: trouble urinating Musculoskeletal History: Reports: Arthritis Psychiatric History: Reports: Anxiety Endocrine/Metabolic History: Reports: Diabetes, Type II - Infectious Disease History Infectious Disease History: Reports: Shingles - Past Surgical History GI Surgical History: Reports: Cholecystectomy, Hernia, Abdominal Musculoskeletal Surgical History: Reports: ORIF Social & Family History - Family History Family Medical History: Noncontributory - Tobacco Use Smoking Status *Q: Current Every Day Smoker Years of Tobacco use: 40 Packs/Tins Daily: 1 - Caffeine Use Caffeine Use: Reports: Coffee - Living Situation & Occupation Living situation: Reports: , with Significant Other (Girlfriend) Occupation: Employed ([employer]) Review of Systems - Review of Systems Review Of Systems: See Below Constitutional: Reports: No Symptoms Eyes: Reports: No Symptoms Ears: Reports: No Symptoms Nose: Reports: No Symptoms Mouth/Throat: Reports: No Symptoms Respiratory: Reports: No Symptoms Cardiovascular: Reports: No Symptoms GI/Abdominal: Reports: No Symptoms Genitourinary: Reports: No Symptoms Musculoskeletal: Reports: Other (Left wrist pain and swelling) ED EXAM, GENERAL - Physical Exam Exam: See Below Exam Limited By: No Limitations General Appearance: Alert, No Apparent Distress Ears: Normal External Exam Nose: Normal Inspection Head: Atraumatic, Normocephalic Neck: Normal Inspection Respiratory/Chest: No Respiratory Distress Extremities: Other (Moderate edema and pain upon palpation to the left wrist. Good sensation and pulses distally) Course - Vital Signs Last Recorded V/S: Last Vital Signs Temp 98.2 F 08/11/19 10:44 Pulse 63 08/11/19 10:44 Resp 18 08/11/19 10:44 BP 164/97 H 08/11/19 10:44 Pulse Ox 98 08/11/19 10:44 - Re-Assessments/Exams Free Text/Narrative Re-Assessment/Exam: 08/11/19 11:23 I called [facility] and I am waiting for the orthopedic surgeon Dr Khan to call me back. 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 I will get him a splint and a shot of solu-medrol 125mg IM and dilaudid 1mg IM. I will also give him a prescription for percocet. Departure - Departure Time of Disposition: 11:50 Disposition: Home, Self-Care 01 Condition: Good Clinical Impression: Avascular necrosis of lunate - Discharge Information *PRESCRIPTION DRUG MONITORING PROGRAM REVIEWED*: No *COPY OF PRESCRIPTION DRUG MONITORING REPORT IN PATIENT DIANE: No Prescriptions: oxyCODONE HCl/Acetaminophen [Percocet 5-325 mg Tablet] 1 - 2 each PO Q6HR PRN # 20 tablet PRN Reason: Pain Referrals: Papi Barboza MD [Primary Care Provider] - Hemant Patel Sr, MD [Physician] - 2 Weeks Forms: ED Department Discharge, ED Return to Work/School Form Additional Instructions: Ice your wrist for 15 minutes 3 times per day for 2 days. Wear the splint for pain. Take tylenol or motrin for pain. If that does not help, try the percocet. Follow up with Dr Patel. Call to make an appointment. Sepsis Event Note - Evaluation Sepsis Screening Result: No Definite Risk - Focused Exam Vital Signs: Vital Signs Temp Pulse Resp BP Pulse Ox 08/11/19 10:44 98.2 F 63 18 164/97 H 98 Date Exam was Performed: 08/11/19 Time Exam was Performed: 11:42
[2019-08-11] MEDS ORDERED: methylPREDNISolone Sodium Succinate 125 MG/2 ML SDV IM ONE (11:44)
[2019-08-11] MEDS ORDERED: HYDROmorphone 1 MG/ML Syringe IM ONE (11:44)
== END 2019-08-11 12:06 | disposition home or self-care (01) ==
LOC: JD.ED 10:36
DX: M87.842 Other osteonecrosis, left hand (principal); I10 Essential (primary) hypertension; E11.9 Type 2 diabetes mellitus without complications; I48.91 Unspecified atrial fibrillation; J45.909 Unspecified asthma, uncomplicated; M19.90 Unspecified osteoarthritis, unspecified site; F17.210 Nicotine dependence, cigarettes, uncomplicated; Z79.899 Other long term (current) drug therapy; Z79.82 Long term (current) use of aspirin; Z79.84 Long term (current) use of oral hypoglycemic drugs
CPT/HCPCS: 96372; 99283; J1170; J2930

== ENCOUNTER 2019-08-24 09:29 | Emergency (ER) | payer SELFPAY | END 2019-08-24 09:58 | disposition left against medical advice (07) | LOC: JD.ED 09:29 | DX: Z53.21 Procedure and treatment not carried out due to patient leaving prior to being seen by health care provider (principal) ==

== ENCOUNTER 2019-11-27 17:44 | Emergency (ER) | payer SELFPAY ==
[2019-11-27 17:58] VITALS: BP 146/93; PULSE 83
[2019-11-27] MEDS ORDERED: Sodium Chloride 0.9% 1,000 ML IV SCH (19:00)
--- NOTE | 2019-11-27 20:00 | EDM.PDOC ---
ED HPI GENERAL MEDICAL PROBLEM - General Chief Complaint: Syncope Stated Complaint: NOSE INJURY Time Seen by Provider: 11/27/19 17:49 Source of Information: Reports: Patient History Limitations: Reports: No Limitations - History of Present Illness INITIAL COMMENTS - FREE TEXT/NARRATIVE: Patient is a 63-year-old male who presents to the emergency department for an injury to his nose after falling and hitting his face on the floor. He states he has been not feeling well for 3 weeks. He has been doctoring with his primary care provider, Dr. Mendez in the clinic for the symptoms. He is diagnosed with BPPV for which he has been prescribed Valium. He has not been using this medication frequently as he states he does not like how it makes him feel. He states that this evening he has had approximately 6 beers. He then was feeling the dizziness so he took a Valium. He states that he is walking to the bathroom and he fell hitting his face on the floor. He does not think he lost consciousness as he remembers falling and hitting his nose. He denies any significant headache. Had no chest pain or shortness of breath. He is not feeling dizzy at this time. Nose Pain Score (Numeric/FACES): 10 - Related Data Allergies Allergy/AdvReac Type Severity Reaction Status Date / Time No Known Allergies Allergy Verified 11/27/19 17:58 Home Meds: Home Meds Aspirin 81 mg PO BRK 11/18/15 [History] Lisinopril/Hydrochlorothiazide [Lisinopril-Hctz 20-12.5 mg Tab] 20 mg PO DAILY 11/18/15 [History] dilTIAZem HCL [Cardizem] 120 mg PO DAILY 01/16/17 [History] metFORMIN [Glucophage XR] 1,000 mg PO BID 01/16/17 [History] Multivitamin [Multivitamins] 1 each PO DAILY 08/10/17 [History] Meclizine [Antivert] 25 mg PO TID 10 Days #30 tab 11/27/19 [Rx] Past Medical History HEENT History: Reports: Impaired Vision Other HEENT History: glasses Cardiovascular History: Reports: Afib, Hypertension Respiratory History: Reports: Asthma Genitourinary History: Reports: Other (See Below) Other Genitourinary History: trouble urinating Musculoskeletal History: Reports: Arthritis Psychiatric History: Reports: Anxiety Endocrine/Metabolic History: Reports: Diabetes, Type II - Infectious Disease History Infectious Disease History: Reports: Shingles - Past Surgical History GI Surgical History: Reports: Cholecystectomy, Hernia, Abdominal Musculoskeletal Surgical History: Reports: ORIF Social & Family History - Family History Family Medical History: Noncontributory - Tobacco Use Smoking Status *Q: Former Smoker Used Tobacco, but Quit: Yes Month/Year Tobacco Last Used: 06/1976 - Caffeine Use Caffeine Use: Reports: None - Recreational Drug Use Recreational Drug Use: No - Living Situation & Occupation Living situation: Reports: , with Significant Other (Girlfriend) Occupation: Employed ([employer] - [employer] across [employer]) ED ROS GENERAL - Review of Systems Review Of Systems: See Below Constitutional: Reports: Fatigue. Denies: Fever, Chills HEENT: Reports: No Symptoms Respiratory: Reports: No Symptoms. Denies: Shortness of Breath, Cough Cardiovascular: Reports: Lightheadedness Endocrine: Reports: No Symptoms GI/Abdominal: Reports: No Symptoms : Reports: No Symptoms Musculoskeletal: Reports: No Symptoms Skin: Reports: No Symptoms Neurological: Reports: Dizziness Psychiatric: Reports: No Symptoms Hematologic/Lymphatic: Reports: No Symptoms Immunologic: Reports: No Symptoms ED EXAM, GENERAL - Physical Exam Exam: See Below Exam Limited By: No Limitations General Appearance: Alert, WD/WN, No Apparent Distress Nose: Nasal Tenderness, Nasal Swelling, Other (1 cm superficial laceration). No: Nasal Deformity, Nasal Drainage Head: Atraumatic, Normocephalic. No: Facial Swelling, Facial Tenderness Respiratory/Chest: No Respiratory Distress, Lungs Clear, Normal Breath Sounds, No Accessory Muscle Use, Chest Non-Tender Cardiovascular: Normal Peripheral Pulses, Regular Rate, Rhythm, No Edema, No Gallop, No JVD, No Rub, Systolic Murmur Neurological: Alert, Oriented, CN II-XII Intact, Normal Cognition, Normal Gait, Normal Reflexes, No Motor/Sensory Deficits Psychiatric: Normal Affect, Normal Mood Skin Exam: Warm, Dry, Intact, Normal Color, No Rash Course - Vital Signs Last Recorded V/S: Last Vital Signs Temp 97.9 F 11/27/19 17:52 Pulse 83 11/27/19 17:52 Resp 18 11/27/19 17:52 BP 146/93 H 11/27/19 17:52 Pulse Ox 95 11/27/19 17:52 - Orders/Labs/Meds Labs: Laboratory Tests 11/27/19 11/27/19 Range/Units 18:35 18:35 WBC 7.56 (4.23-9.07) K/mm3 RBC 4.61 L (4.63-6.08) M/mm3 Hgb 14.2 (13.7-17.5) gm/dl Hct 42.1 (40.1-51.0) % MCV 91.3 (79.0-92.2) fl MCH 30.8 (25.7-32.2) pg MCHC 33.7 (32.2-35.5) g/dl RDW Std Deviation 47.7 H (35.1-43.9) fL Plt Count 198 (163-337) K/mm3 MPV 10.9 (9.4-12.3) fl Neut % (Auto) 57.4 (34.0-67.9) % Lymph % (Auto) 27.5 (21.8-53.1) % York % (Auto) 11.5 (5.3-12.2) % Eos % (Auto) 2.8 (0.8-7.0) Baso % (Auto) 0.7 (0.1-1.2) % Neut # (Auto) 4.34 (1.78-5.38) K/mm3 Lymph # (Auto) 2.08 (1.32-3.57) K/mm3 York # (Auto) 0.87 H (0.30-0.82) K/mm3 Eos # (Auto) 0.21 (0.04-0.54) K/mm3 Baso # (Auto) 0.05 (0.01-0.08) K/mm3 Sodium 141 (136-145) mEq/L Potassium 3.8 (3.5-5.1) mEq/L Chloride 104 (98-107) mEq/L Carbon Dioxide 26 (21-32) mEq/L Anion Gap 14.8 (5-15) BUN 10 (7-18) mg/dL Creatinine 1.0 (0.7-1.3) mg/dL Est Cr Clr Drug Dosing 73.15 mL/min Estimated GFR (MDRD) > 60 (>60) mL/min BUN/Creatinine Ratio 10.0 L (14-18) Glucose 182 H (80-115) mg/dL Calcium 9.1 (8.5-10.1) mg/dL Total Bilirubin 0.6 (0.2-1.0) mg/dL AST 57 H (15-37) U/L ALT 87 H (16-63) U/L Alkaline Phosphatase 66 (46-116) U/L Total Protein 7.5 (6.4-8.2) g/dl Albumin 3.3 L (3.4-5.0) g/dl Globulin 4.2 gm/dL Albumin/Globulin Ratio 0.8 L (1-2) Ethyl Alcohol 0.09 (0.00) gm% Meds: Medications Discontinued Medications Generic Name Dose Route Start Last Admin Trade Name Freq PRN Reason Stop Dose Admin Sodium Chloride 1,000 mls @ 999 mls/hr 11/27/19 19:00 11/27/19 19:09 Normal Saline IV 999 mls/hr ASDIRECTED [facility] Administration - Re-Assessments/Exams Free Text/Narrative Re-Assessment/Exam: Patient is a 63-year-old male who presents to the emergency department with a nasal injury after falling and hitting his face on the floor. Records have been obtained from [facility] and it appears that he has been seen in a number of occasions over the last few weeks with complaints of fatigue, shortness of breath, weakness, and dizziness. He has been diagnosed with BPPV for which he has been prescribed Valium. Patient states that he normally drinks 3-4 beers per day, however tonight he had 6 beers prior to taking the Valium. He also states that he had a beer on his drive to the emergency department. He is scheduled for outpatient stress test either tomorrow or the next day per his report. On review of the records he is also had a CT heart screening score done and there are plans for him to have an echocardiogram completed. Lab work was done in the clinic was found to be stable from his previous exams. He has been referred to physical therapy for treatment of his BPPV, however he states he has not told an appointment thus far. We will complete a CT scan of his facial bones as well as a CT scan of his head. I have also ordered CBC, CMP, and blood EtOH. We will give him a liter of IV fluids. 11/27/19 20:29 Patient's hematology was overall unremarkable. Blood alcohol was found to be 0.09. CT scan of the facial bones shows a small fracture on the tip of the nasal bone. No other fractures seen to the facial bones. CT scan of the head shows mucosal thickening within the maxillary sinus which which is most likely chronic. There is no acute intracranial abnormalities. The superficial laceration to his nasal bridge was cleansed and 2 Steri-Strips were applied. There was no active bleeding noted. It ss a definite possibility the patient fell as a result of combining the Valium with alcohol. His vertigo is likely also contributing to this. Discussed with the patient the risk of taking Valium in combination with alcohol. Since he is a chronic alcohol user, I feel it is unlikely that he is going to stop drinking in order to take the Valium safely. Discussed the option of meclizine as it is less sedating. He would like to try this option. I will send a prescription for meclizine to clinic pharmacy. Recommend that he keep his follow-ups with his primary care provider and for his stress test and echocardiogram. Discharge instructions as documented. Departure - Departure Time of Disposition: 20:34 Disposition: Home, Self-Care 01 Condition: Good Clinical Impression: Nasal fracture Qualifiers: Encounter type: initial encounter Fracture type: closed Qualified Code(s): S02.2XXA - Fracture of nasal bones, initial encounter for closed fracture Fall Qualifiers: Encounter type: initial encounter Qualified Code(s): W19.XXXA - Unspecified fall, initial encounter - Discharge Information *PRESCRIPTION DRUG MONITORING PROGRAM REVIEWED*: No *COPY OF PRESCRIPTION DRUG MONITORING REPORT IN PATIENT DIANE: No Prescriptions: Meclizine [Antivert] 25 mg PO TID 10 Days #30 tab Instructions: Nasal Fracture, [id number] Referrals: Papi Barboza MD [Primary Care Provider] - Forms: ED Department Discharge Additional Instructions: You were seen in the emergency department today for an injury to your nose after falling and hitting your face on the floor. CT scan was completed of your head and facial bones, as well as blood work. CT scan does show a small fracture at the tip of your nose. Your blood work and CT scan of your head were overall normal. As we discussed, the likely cause of your fall was combining the Valium with alcohol, in addition to your dizziness from your vertigo. Recommend that you refrain from binding alcohol with Valium as this will result in increase sedation and increased chance of falling. I would recommend that you schedule an appointment with physical therapy as you were referred by your primary care provider for treatment of your vertigo symptoms. I have sent a prescription for meclizine to treat the symptoms of vertigo. This tends to be less sedating than the Valium. Recommend that you try this and see if it helps her symptoms. Ensure that you stay adequately hydrated. Follow-up closely with your primary care provider for ongoing management of your concerns and symptoms. If you should experience any new or worsening symptoms of concern, please not hesitate to return to the emergency department. Sepsis Event Note (ED) - Evaluation Sepsis Screening Result: No Definite Risk - Focused Exam Vital Signs: Vital Signs Temp Pulse Resp BP Pulse Ox 11/27/19 17:52 97.9 F 83 18 146/93 H 95
--- NOTE | 2019-11-27 20:13 | CT ---
CT facial bones Technique: Multiple axial sections through the facial bones were obtained. Reconstructed coronal and sagittal images were obtained. Findings: Right and left globes are symmetric. Mild mucosal thickening is seen within both maxillary sinuses. Other paranasal sinuses are clear. No air-fluid levels are seen. Minimal fracture within the tip of the nasal bone. No additional fracture facial bones. Impression: 1. Mild mucosal thickening within the maxillary sinuses again noted which is most likely chronic. 2. Small fracture within the tip of the nasal bone. 3. No additional acute finding is seen on CT study of the facial bones. Diagnostic code #2 Study was dictated in MDT
--- NOTE | 2019-11-27 20:13 | CT ---
Head CT Technique: Multiple axial sections through the brain were obtained. Intravenous contrast was not utilized. Comparison: No prior intracranial imaging is available. Findings: Diminished density is noted within the periventricular white matter compatible with small vessel ischemic demyelination change. Ventricles along with basal cisterns and sulci over the convexities are mildly prominent. No other abnormal parenchymal densities are seen. No evidence of intracranial hemorrhage. No midline shift or mass effect is seen. Bone window settings were reviewed which shows mild mucosal thickening within the maxillary sinuses. Mastoid sinuses show nothing acute. No acute calvarial findings are appreciated. Impression: 1. Mucosal thickening within the maxillary sinuses most likely chronic. 2. Senescent change as described above. 3. No acute intracranial abnormality is appreciated. Diagnostic code #2 Study was dictated in MDT
== END 2019-11-27 20:50 | disposition home or self-care (01) ==
LOC: JD.ED 17:44
DX: S02.2XXA Fracture of nasal bones, initial encounter for closed fracture (principal); I10 Essential (primary) hypertension; I48.91 Unspecified atrial fibrillation; E11.9 Type 2 diabetes mellitus without complications; M19.90 Unspecified osteoarthritis, unspecified site; Z87.891 Personal history of nicotine dependence; Z79.82 Long term (current) use of aspirin; Z79.84 Long term (current) use of oral hypoglycemic drugs; Z79.899 Other long term (current) drug therapy; W19.XXXA Unspecified fall, initial encounter; W22.8XXA Striking against or struck by other objects, initial encounter
CPT/HCPCS: 36415; 70450; 70486; 80053; 80307; 85025; 96360; 99284; J7030

== ENCOUNTER 2020-05-22 10:58 | Emergency (ER) | payer BC ==
[2020-05-22] MEDS: Sodium Chloride 0.9% 10 ML Syringe FLUSH PRN ×2 (11:20→11:29)
--- NOTE | 2020-05-22 12:06 | CR ---
Chest: Portable view of the chest was obtained. Comparison: Prior chest x-ray of 08/10/17 and 01/21/17. Heart size and mediastinum are within normal limits for portable technique. Lungs are clear with no acute parenchymal change. Bony structures are grossly intact. Impression: 1. Nothing acute is appreciated on portable chest x-ray. Diagnostic code #1
[2020-05-22] MEDS ORDERED: Sodium Chloride 0.9% 1,000 ML IV STA (12:17)
--- NOTE | 2020-05-22 12:34 | EDM.PDOC ---
ED HPI GENERAL MEDICAL PROBLEM - General Chief Complaint: Diabetic Complaint Stated Complaint: DIABETIC ISSUES Time Seen by Provider: 05/22/20 11:09 Source of Information: Reports: Patient, RN Notes Reviewed History Limitations: Reports: No Limitations - History of Present Illness INITIAL COMMENTS - FREE TEXT/NARRATIVE: Patient is a 64-year-old male presenting to the emergency department with complaints of high blood sugars and shortness of breath with exertion. Last week, patient was placed on prednisone for fluid behind one of his ears. He states since that time, he has been running high blood sugars. He stopped taking this medication last Monday because his blood sugars were elevated. Patient was seen by his primary care provider, Dr. Mendez on Monday of . He was referred to diabetic education who started him on Lantus 10 units daily. Yesterday, he called his health educator when her blood sugars were still high. She advised to increase it to 14 units. He states prior to coming to the ER, he also called her and she stated to increase it to 18 units. He complains of fatigue and blurry vision. He also complains of shortness of breath with exertion over the last few weeks. He does have an occasional cough after taking a deep breath. Denies any fever or chills. He has had no chest pain. Denies any nausea, vomiting, diarrhea. - Related Data Allergies Allergy/AdvReac Type Severity Reaction Status Date / Time No Known Allergies Allergy Verified 11/27/19 17:58 Home Meds: Home Meds Aspirin 81 mg PO BRK 11/18/15 [History] Lisinopril/Hydrochlorothiazide [Lisinopril-Hctz 20-12.5 mg Tab] 20 mg PO DAILY 11/18/15 [History] dilTIAZem HCL [Cardizem] 120 mg PO DAILY 01/16/17 [History] metFORMIN [Glucophage XR] 1,000 mg PO BID 01/16/17 [History] FLUoxetine [PROzac] 0 mg PO DAILY 05/22/20 [History] Insulin Glarg,Human.Rec.Analog [Lantus] 14 units INJECT DAILY 05/22/20 [History] Past Medical History HEENT History: Reports: Impaired Vision Other HEENT History: glasses Cardiovascular History: Reports: Afib, Hypertension Respiratory History: Reports: Asthma Genitourinary History: Reports: Other (See Below) Other Genitourinary History: trouble urinating Musculoskeletal History: Reports: Arthritis Psychiatric History: Reports: Anxiety Endocrine/Metabolic History: Reports: Diabetes, Type II - Infectious Disease History Infectious Disease History: Reports: Shingles - Past Surgical History HEENT Surgical History: Reports: Oral Surgery, Other (See Below) Other HEENT Surgeries/Procedures: 2 steel plates in jaw Cardiovascular Surgical History: Reports: None GI Surgical History: Reports: Cholecystectomy, Hernia, Abdominal Musculoskeletal Surgical History: Reports: ORIF Social & Family History - Family History Family Medical History: No Pertinent Family History - Tobacco Use Tobacco Use Status *Q: Former Tobacco User Used Tobacco, but Quit: Yes Month/Year Tobacco Last Used: 1976 - Caffeine Use Caffeine Use: Reports: Soda - Recreational Drug Use Recreational Drug Use: No - Living Situation & Occupation Living situation: Reports: , with Significant Other (Girlfriend) Occupation: Employed ([employer]) ED ROS GENERAL - Review of Systems Review Of Systems: See Below Constitutional: Reports: Fatigue. Denies: Fever, Chills HEENT: Reports: Vision Change Respiratory: Reports: Shortness of Breath, Cough Cardiovascular: Reports: Dyspnea on Exertion. Denies: Chest Pain, Lightheadedness Endocrine: Reports: Fatigue, High Glucose GI/Abdominal: Reports: No Symptoms. Denies: Diarrhea, Nausea, Vomiting : Reports: No Symptoms Musculoskeletal: Reports: No Symptoms Skin: Reports: No Symptoms Neurological: Reports: No Symptoms. Denies: Dizziness, Headache Psychiatric: Reports: No Symptoms Hematologic/Lymphatic: Reports: No Symptoms Immunologic: Reports: No Symptoms ED EXAM GENERAL NO PERIP PULSE - Physical Exam Exam: See Below Exam Limited By: No Limitations General Appearance: Alert, WD/WN, No Apparent Distress Eye Exam: Bilateral Eye: PERRL Respiratory/Chest: No Respiratory Distress, Lungs Clear, Normal Breath Sounds, No Accessory Muscle Use, Chest Non-Tender Cardiovascular: Normal Peripheral Pulses, Regular Rate, Rhythm, No Edema, No Gallop, No JVD, No Murmur, No Rub GI/Abdominal: Normal Bowel Sounds, Soft, Non-Tender, No Organomegaly, No Distention, No Abnormal Bruit, No Mass Neurological: Alert, Oriented, CN II-XII Intact, Normal Cognition, Normal Gait, Normal Reflexes, No Motor/Sensory Deficits Psychiatric: Normal Affect, Normal Mood Skin Exam: Warm, Dry, Intact, Normal Color, No Rash Course - Vital Signs Last Recorded V/S: Last Vital Signs Temp 96.7 F L 05/22/20 11:09 Pulse 67 05/22/20 11:09 Resp 20 05/22/20 11:09 BP 127/74 05/22/20 11:09 Pulse Ox 99 05/22/20 11:09 - Orders/Labs/Meds Orders: Active Orders 24 hr Category Date Time Status EKG Documentation Completion [RC] STAT Care 05/22/20 11:26 Active Peripheral IV Care [RC] . DIRECTED Care 05/22/20 11:26 Active Chest 1V Frontal [CR] Routine Exams 05/22/20 12:18 Taken UA W/MICROSCOPIC [URIN] Stat Lab 05/22/20 11:27 Ordered Sodium Chloride 0.9% [Saline Flush] Med 05/22/20 11:26 Active 10 ml FLUSH ASDIRECTED PRN Peripheral IV Insertion Adult [OM.PC] Stat Oth 05/22/20 11:26 Ordered Medication Orders Sodium Chloride (Saline Flush) 10 ml FLUSH ASDIRECTED PRN PRN Reason: Keep Vein Open Last Admin: 05/22/20 11:29 Dose: 10 ml Documented by: Admin: 05/22/20 11:20 Dose: 10 ml Documented by: KENNY Labs: Laboratory Tests 05/22/20 05/22/20 05/22/20 Range/Units 11:20 11:20 11:20 WBC 8.69 (4.23-9.07) K/mm3 RBC 5.20 (4.63-6.08) M/mm3 Hgb 15.9 D (13.7-17.5) gm/dl Hct 46.1 (40.1-51.0) % MCV 88.7 (79.0-92.2) fl MCH 30.6 (25.7-32.2) pg MCHC 34.5 (32.2-35.5) g/dl RDW Std Deviation 42.6 (35.1-43.9) fL Plt Count 158 L (163-337) K/mm3 MPV 12.6 H (9.4-12.3) fl Neut % (Auto) 64.4 (34.0-67.9) % Lymph % (Auto) 21.2 L (21.8-53.1) % [place] % (Auto) 12.5 H (5.3-12.2) % Eos % (Auto) 1.4 (0.8-7.0) Baso % (Auto) 0.3 (0.1-1.2) % Neut # (Auto) 5.59 H (1.78-5.38) K/mm3 Lymph # (Auto) 1.84 (1.32-3.57) K/mm3 [place] # (Auto) 1.09 H (0.30-0.82) K/mm3 Eos # (Auto) 0.12 (0.04-0.54) K/mm3 Baso # (Auto) 0.03 (0.01-0.08) K/mm3 D-Dimer, Quantitative 0.37 (0.19-0.50) mg/L Sodium 124 L D (136-145) mEq/L Potassium 3.5 (3.5-5.1) mEq/L Chloride 89 L D (98-107) mEq/L Carbon Dioxide 24 (21-32) mEq/L Anion Gap 14.5 (5-15) BUN 23 H (7-18) mg/dL Creatinine 1.7 H (0.7-1.3) mg/dL Est Cr Clr Drug Dosing 42.47 mL/min Estimated GFR (MDRD) 41 (>60) mL/min BUN/Creatinine Ratio 13.5 L (14-18) Glucose 517 H (80-115) mg/dL POC Glucose (80-115) mg/dL Calcium 10.0 (8.5-10.1) mg/dL Total Bilirubin 1.2 H (0.2-1.0) mg/dL AST 136 H (15-37) U/L ALT 243 H (16-63) U/L Alkaline Phosphatase 80 (46-116) U/L Troponin I < 0.017 (0.00-0.056) ng/mL C-Reactive Protein 0.4 (<1.0) mg/dL NT-Pro-B Natriuret Pep (0-125) pg/mL Total Protein 7.7 (6.4-8.2) g/dl Albumin 3.3 L (3.4-5.0) g/dl Globulin 4.4 gm/dL Albumin/Globulin Ratio 0.8 L (1-2) Ketones (0.0-0.3) mM 05/22/20 05/22/20 05/22/20 Range/Units 11:20 11:20 14:01 WBC (4.23-9.07) K/mm3 RBC (4.63-6.08) M/mm3 Hgb (13.7-17.5) gm/dl Hct (40.1-51.0) % MCV (79.0-92.2) fl MCH (25.7-32.2) pg MCHC (32.2-35.5) g/dl RDW Std Deviation (35.1-43.9) fL Plt Count (163-337) K/mm3 MPV (9.4-12.3) fl Neut % (Auto) (34.0-67.9) % Lymph % (Auto) (21.8-53.1) % [place] % (Auto) (5.3-12.2) % Eos % (Auto) (0.8-7.0) Baso % (Auto) (0.1-1.2) % Neut # (Auto) (1.78-5.38) K/mm3 Lymph # (Auto) (1.32-3.57) K/mm3 [place] # (Auto) (0.30-0.82) K/mm3 Eos # (Auto) (0.04-0.54) K/mm3 Baso # (Auto) (0.01-0.08) K/mm3 D-Dimer, Quantitative (0.19-0.50) mg/L Sodium (136-145) mEq/L Potassium (3.5-5.1) mEq/L Chloride (98-107) mEq/L Carbon Dioxide (21-32) mEq/L Anion Gap (5-15) BUN (7-18) mg/dL Creatinine (0.7-1.3) mg/dL Est Cr Clr Drug Dosing mL/min Estimated GFR (MDRD) (>60) mL/min BUN/Creatinine Ratio (14-18) Glucose (80-115) mg/dL POC Glucose 350 H (80-115) mg/dL Calcium (8.5-10.1) mg/dL Total Bilirubin (0.2-1.0) mg/dL AST (15-37) U/L ALT (16-63) U/L Alkaline Phosphatase (46-116) U/L Troponin I (0.00-0.056) ng/mL C-Reactive Protein (<1.0) mg/dL NT-Pro-B Natriuret Pep 172 H (0-125) pg/mL Total Protein (6.4-8.2) g/dl Albumin (3.4-5.0) g/dl Globulin gm/dL Albumin/Globulin Ratio (1-2) Ketones 0.07 (0.0-0.3) mM Meds: Medications Generic Name Dose Route Start Last Admin Trade Name Freq PRN Reason Stop Dose Admin Sodium Chloride 10 ml 05/22/20 11:26 05/22/20 11:29 Saline Flush FLUSH 10 ml ASDIRECTED PRN Administration Keep Vein Open Discontinued Medications Generic Name Dose Route Start Last Admin Trade Name Freq PRN Reason Stop Dose Admin Sodium Chloride 1,000 mls @ 999 mls/hr 05/22/20 12:17 05/22/20 13:12 Normal Saline IV 05/22/20 13:17 999 mls/hr NOW STA Administration Insulin Human Lispro 8 unit 05/22/20 12:17 05/22/20 13:17 Humalog SUBCUT 05/22/20 12:18 Not Given ONETIME ONE Insulin Human Lispro 8 unit 05/22/20 13:15 05/22/20 13:16 Humalog SUBCUT 05/22/20 13:16 8 unit ONETIME ONE Administration - Re-Assessments/Exams Free Text/Narrative Re-Assessment/Exam: Patient is a 64-year-old male presenting to the emergency department with complaints of high blood sugar as well as shortness of breath with exertion over the last few weeks. He has been seen by his primary care provider and started on long-acting insulin, however he is still experiencing significantly elevated blood sugars. States his blood sugar this morning was 320 and that he ate cereal after this. Blood sugar in triage was shown to be greater than 400. I have ordered CBC, CMP, CRP, D-dimer, troponin, proBNP, chest x-ray, and EKG. 05/22/20 12:54 Hematology was significant for sodium low at 124, however when corrected for his glucose it is 134 which is normal. BUN elevated at 23, creatinine 1.7, glucose 517, total bili 1.2, AST 136, ALT 243, proBNP 172. Patient's troponin and D- dimer are normal. Ketones are 0.07 which is normal. There are no acute abnormalities visualized on the chest x-ray. EKG shows normal sinus rhythm with no signs of acute ischemia. I have ordered a 1 L bolus of normal saline as well as 8 units of subcutaneous insulin. We will recheck his blood sugar about 45 minutes. 05/22/20 14:11 Repeat blood glucose after the 8 units of subcutaneous insulin was 350. Given additional 4 units of subcutaneous insulin and we will discharge him home. Initial plan was to start him on sliding scale insulin 4 times daily AC bed, however he states that he would rather just work on increasing his Lantus as he cannot afford to purchase another type of insulin. Recommend that he start taking Lantus 18 units tomorrow as advised by his health educator. If his blood sugars are still high throughout the day tomorrow, he can go up to 20 units of Lantus on Monday. Recommend follow-up with the health educator Monday. We will complete a Covid test today on discharge. Discharge instructions as documented. Departure - Departure Time of Disposition: 14:12 Disposition: Home, Self-Care 01 Condition: Good Clinical Impression: Hyperglycemia - Discharge Information *PRESCRIPTION DRUG MONITORING PROGRAM REVIEWED*: No *COPY OF PRESCRIPTION DRUG MONITORING REPORT IN PATIENT DIANE: No Instructions: Hyperglycemia, [id number] Referrals: Papi Barboza MD [Primary Care Provider] - Forms: ED Department Discharge Additional Instructions: You were seen in the emergency department today for high blood sugar, as well as shortness of breath with exertion and cough for the last few weeks. Work-up included blood work, chest x-ray, and EKG of your heart. Your blood sugar was found to be 516. You received 8 units of subcutaneous insulin which brought your blood sugar down to 350. You also received 1 L of IV fluids. On discharge, you received an additional 4 units of fast acting insulin. We did discuss the possibility of using sliding scale fast acting insulin before meals, however you declined this for financial reasons. Recommend that you increase your Lantus to 18 units tomorrow as advised by your health educator. If you continue to run high blood sugars above 300 before eating tomorrow, you may increase to 20 units on Monday. Recommend that you check your blood sugar first thing in the morning before you eat, 2 hours after a meal, and before bed. Keep a log of these readings and take them to your health educator. Follow-up with you health educator on Monday. Your chest x-ray and EKG were normal. There is no visible pneumonia or other cause for your shortness of breath. You have been Covid tested today. You will be notified when those results are available. If you experience any new or worsening symptoms of concern, please not hesitate to return to the emergency department. Sepsis Event Note (ED) - Evaluation Sepsis Screening Result: No Definite Risk - Focused Exam Vital Signs: Vital Signs Temp Pulse Resp BP Pulse Ox 05/22/20 11:09 96.7 F L 67 20 127/74 99 - My Orders Last 24 Hours: My Active Orders 05/22/20 11:26 EKG Documentation Completion [RC] STAT Peripheral IV Care [RC] . DIRECTED Sodium Chloride 0.9% [Saline Flush] 10 ml FLUSH ASDIRECTED PRN Peripheral IV Insertion Adult [OM.PC] Stat 05/22/20 11:27 UA W/MICROSCOPIC [URIN] Stat 05/22/20 12:18 Chest 1V Frontal [CR] Routine - Assessment/Plan Last 24 Hours: My Active Orders 05/22/20 11:26 EKG Documentation Completion [RC] STAT Peripheral IV Care [RC] . DIRECTED Sodium Chloride 0.9% [Saline Flush] 10 ml FLUSH ASDIRECTED PRN Peripheral IV Insertion Adult [OM.PC] Stat 05/22/20 11:27 UA W/MICROSCOPIC [URIN] Stat 05/22/20 12:18 Chest 1V Frontal [CR] Routine
[2020-05-22] MEDS ORDERED: Insulin Lispro 100 Units/ML 3 ML Vial SUBCUT ONE (13:15)
[2020-05-22 14:48] VITALS: BP 130/71; PULSE 70
--- NOTE | 2020-05-22 15:00 | CR ---
Chest: Portable view of the chest was obtained. Comparison: Previous chest x-ray performed on the same day at 11:14 AM and previous chest x-rays of 08/10/17 and 01/21/17. Superior mediastinum is slightly prominent which is stable from old exams. Heart size appears within normal limits for portable technique. Lungs show no acute parenchymal change. Bony structures are grossly intact. Impression: 1. Nothing acute is seen on portable chest x-ray. Diagnostic code #2
== END 2020-05-22 14:45 | disposition home or self-care (01) ==
LOC: JD.ED 10:58
DX: E11.65 Type 2 diabetes mellitus with hyperglycemia (principal); I48.91 Unspecified atrial fibrillation; I10 Essential (primary) hypertension; J45.909 Unspecified asthma, uncomplicated; F41.9 Anxiety disorder, unspecified; Z87.891 Personal history of nicotine dependence; M19.90 Unspecified osteoarthritis, unspecified site; Z79.82 Long term (current) use of aspirin; Z79.899 Other long term (current) drug therapy; Z79.4 Long term (current) use of insulin
CPT/HCPCS: 36415; 71045; 80053; 81001; 82009; 82962; 83880; 84484; 85025; 85379; 86140; 87635; 93005; 99285; J1815; J7030; 99284; U0002

== ENCOUNTER 2020-10-24 09:57 | Emergency (ER) | payer BC, MEDICAID ==
[2020-10-24 10:15] VITALS: BP 157/92; PULSE 81
--- NOTE | 2020-10-24 10:37 | EDM.PDOC ---
ED HPI GENERAL MEDICAL PROBLEM - General Chief Complaint: Back Pain or Injury Stated Complaint: BACK PAIN Time Seen by Provider: 10/24/20 10:13 Source of Information: Reports: Patient, Old Records History Limitations: Reports: No Limitations - History of Present Illness INITIAL COMMENTS - FREE TEXT/NARRATIVE: Patient presents with increasing right flank pain. Onset of several days duration was seen and evaluated yesterday at the urgent care and swelling he has CT scan chest x-ray and urinalysis. Never came up with any specific etiology and was sent home to use just ibuprofen and [place] balm. Patient does describe may be some lifting injury when he [place] denies any fevers chills or sweats no shortness of breath or breathing problems although it does seem to catch his breath and hurts so much when he has the pain on the right flank area had his shingles vaccine at his Covid vaccine x2 no history of any coughing cold symptoms no history of any DVT or thromboembolic problems in the past no nausea vomiting or abdominal pain, no diarrhea or bowel problems no burning pain or blood in the urine the flank pain does not seem to radiate down into the groin or abdomen is mostly in the back and causing him to catch his breath. No lightheadedness or fainting spell. Right Middle Back Pain Score (Numeric/FACES): 8 - Related Data Allergies Allergy/AdvReac Type Severity Reaction Status Date / Time No Known Allergies Allergy Verified 10/24/20 10:15 Home Meds: Home Meds Aspirin 81 mg PO BRK 11/18/15 [History] Lisinopril/Hydrochlorothiazide [Lisinopril-Hctz 20-12.5 mg Tab] 20 mg PO DAILY 11/18/15 [History] metFORMIN [Glucophage XR] 1,000 mg PO BID 01/16/17 [History] Hydrocodone/Acetaminophen [Hydrocodone-Acetamin 5-325 mg] 1 each PO Q4HR PRN #10 tablet 10/24/20 [Rx] Naproxen [Naprosyn] 500 mg PO BIDAC PRN #20 tablet 10/24/20 [Rx] Orphenadrine [Norflex] 100 mg PO BID PRN #14 tab 10/24/20 [Rx] Past Medical History HEENT History: Reports: Impaired Vision Other HEENT History: glasses Cardiovascular History: Reports: Afib, Hypertension Respiratory History: Reports: Asthma Genitourinary History: Reports: Other (See Below) Other Genitourinary History: trouble urinating Musculoskeletal History: Reports: Arthritis Psychiatric History: Reports: Anxiety Endocrine/Metabolic History: Reports: Diabetes, Type II - Infectious Disease History Infectious Disease History: Reports: Shingles - Past Surgical History HEENT Surgical History: Reports: Oral Surgery, Other (See Below) Other HEENT Surgeries/Procedures: 2 steel plates in jaw Cardiovascular Surgical History: Reports: None GI Surgical History: Reports: Cholecystectomy, Hernia, Abdominal Musculoskeletal Surgical History: Reports: ORIF Social & Family History - Family History Family Medical History: No Pertinent Family History - Tobacco Use Tobacco Use Status *Q: Never Tobacco User - Caffeine Use Caffeine Use: Reports: Soda - Recreational Drug Use Recreational Drug Use: No - Living Situation & Occupation Living situation: Reports: , with Significant Other (Girlfriend) Occupation: Employed ([employer]) ED ROS GENERAL - Review of Systems Review Of Systems: See Below Constitutional: Denies: Fever, Chills, Night Sweats HEENT: Denies: Rhinitis, Throat Pain Respiratory: Denies: Shortness of Breath, Cough Cardiovascular: Denies: Chest Pain, Dyspnea on Exertion, Lightheadedness GI/Abdominal: Denies: Abdominal Pain, Diarrhea, Nausea, Vomiting : Reports: Flank Pain. Denies: Dysuria, Frequency, Hematuria, Urgency Neurological: Reports: No Symptoms. Denies: Dizziness, Headache Psychiatric: Reports: No Symptoms ED EXAM,LOWER BACK PAIN/INJURY - Physical Exam Exam: See Below Exam Limited By: No Limitations General Appearance: Alert, WD/WN, No Apparent Distress, Mild Distress Respiratory/Chest: No Respiratory Distress, Lungs Clear, Normal Breath Sounds, No Accessory Muscle Use (Right lower ribs are tender to palpation no signs of skin rash noted) Cardiovascular: Normal Peripheral Pulses, Regular Rate, Rhythm, No Edema GI/Abdominal: Normal Bowel Sounds, Soft, No Distention, Other (Right flank tenderness) Back Exam: Normal Inspection, CVA Tenderness (R), Muscle Spasm, Paraspinal Tenderness, Vertebral Tenderness, Other (Negative straight leg raising test no pain in the legs no numbness or tingling noted no muscle strength deficit) Extremities: Normal Range of Motion. No: No Pedal Edema Neurological: Alert, Normal Mood/Affect, Normal Dorsiflexion, No Motor/Sensory Deficits, Oriented x 3 Course - Vital Signs Text/Narrative:: Right flank tenderness we will see if we can get old records about the work-up and evaluation done yesterday does not sound there is any renal stones colic urinary tract infection need to rule out whether this could be a PE although it seems more musculoskeletal. Last Recorded V/S: Last Vital Signs Temp 98.2 F 10/24/20 10:12 Pulse 81 10/24/20 10:12 Resp 16 10/24/20 10:12 BP 157/92 H 10/24/20 10:12 Pulse Ox 97 10/24/20 10:12 - Orders/Labs/Meds Orders: Active Orders 24 hr Category Date Time Status Orphenadrine [Norflex] Med 10/24/20 10:45 Active 100 mg PO BID Medication Orders Orphenadrine Citrate (Orphenadrine 100 Mg Tab.Er) 100 mg PO BID [place] Last Admin: 10/24/20 10:54 Dose: 100 mg Documented by: AYDEE Labs: Laboratory Tests 10/24/20 10/24/20 10/24/20 Range/Units 11:35 11:35 11:35 WBC 6.47 (4.23-9.07) K/mm3 RBC 4.86 (4.63-6.08) M/mm3 Hgb 15.1 (13.7-17.5) gm/dl Hct 44.9 (40.1-51.0) % MCV 92.4 H D (79.0-92.2) fl MCH 31.1 (25.7-32.2) pg MCHC 33.6 (32.2-35.5) g/dl RDW Std Deviation 47.3 H (35.1-43.9) fL Plt Count 210 (163-337) K/mm3 MPV 10.9 (9.4-12.3) fl Neut % (Auto) 60.1 (34.0-67.9) % Lymph % (Auto) 25.2 (21.8-53.1) % [place] % (Auto) 11.9 (5.3-12.2) % Eos % (Auto) 2.0 (0.8-7.0) Baso % (Auto) 0.6 (0.1-1.2) % Neut # (Auto) 3.89 (1.78-5.38) K/mm3 Lymph # (Auto) 1.63 (1.32-3.57) K/mm3 [place] # (Auto) 0.77 (0.30-0.82) K/mm3 Eos # (Auto) 0.13 (0.04-0.54) K/mm3 Baso # (Auto) 0.04 (0.01-0.08) K/mm3 D-Dimer, Quantitative 0.40 (0.19-0.50) mg/L Sodium 138 D (136-145) mEq/L Potassium 3.9 (3.5-5.1) mEq/L Chloride 101 D (98-107) mEq/L Carbon Dioxide 27 (21-32) mEq/L Anion Gap 13.9 (5-15) BUN 15 (7-18) mg/dL Creatinine 1.2 (0.7-1.3) mg/dL Est Cr Clr Drug Dosing 60.17 mL/min Estimated GFR (MDRD) > 60 (>60) mL/min BUN/Creatinine Ratio 12.5 L (14-18) Glucose 145 H (70-99) mg/dL Calcium 9.1 (8.5-10.1) mg/dL Total Bilirubin 0.8 (0.2-1.0) mg/dL AST 66 H (15-37) U/L ALT 96 H (16-63) U/L Alkaline Phosphatase 73 (46-116) U/L Total Protein 8.1 (6.4-8.2) g/dl Albumin 3.4 (3.4-5.0) g/dl Globulin 4.7 gm/dL Albumin/Globulin Ratio 0.7 L (1-2) Meds: Medications Generic Name Dose Route Start Last Admin Trade Name Freq PRN Reason Stop Dose Admin Orphenadrine Citrate 100 mg 10/24/20 10:45 10/24/20 10:54 Orphenadrine 100 Mg Tab.Er PO 100 mg BID [place] Administration Discontinued Medications Generic Name Dose Route Start Last Admin Trade Name Freq PRN Reason Stop Dose Admin Ketorolac Tromethamine 10 mg 10/24/20 10:47 10/24/20 10:54 Ketorolac 10 Mg Tab PO 10/24/20 10:48 10 mg ONETIME ONE Administration - Re-Assessments/Exams Free Text/Narrative Re-Assessment/Exam: 10/24/20 11:47 Reviewed records from his visit on the at the walk-in clinic including rib series and chest x-ray that is read out as unremarkable by the radiologist, no signs of any fracture or lung pathology CT scan of the abdomen pelvis noncontrast scan was also performed and did not show any acute findings. There is no signs of any renal pathology, no hydronephrosis, possibly low attenuated cyst on the kidney but otherwise bowels are normal no signs of acute appendicitis some degenerative changes of the spine were noted and otherwise lung bases with mild atelectasis but no obvious pneumonia. Urinalysis demonstrated 3-5 red blood cells per high-power field positive glucose in the u rine spec gravity was 1.025 else negative. 10/24/20 12:09 D-dimer is negative, white counts normal, kidney function stable blood sugar 145 mild bump in his AST ALT total bilirubin is normal suspect musculoskeletal etiology doubt PE, will treat with hydrocodone nor flex and Naprosyn follow-up with his primary care physician return precautions given Departure - Departure Time of Disposition: 12:20 Disposition: Home, Self-Care 01 Condition: Fair Clinical Impression: Flank pain - Discharge Information Prescriptions: Hydrocodone/Acetaminophen [Hydrocodone-Acetamin 5-325 mg] 1 each PO Q4HR PRN #10 tablet PRN Reason: Pain (Moderate 4-6) Naproxen [Naprosyn] 500 mg PO BIDAC PRN #20 tablet PRN Reason: Pain (Moderate 4-6) Orphenadrine [Norflex] 100 mg PO BID PRN #14 tab PRN Reason: Muscle Spasm Instructions: Muscle Strain, [id number], Flank Pain, Adult, [id number] Referrals: Papi Barboza MD [Primary Care Provider] - Forms: ED Department Discharge Additional Instructions: May use hydrocodone 1 or 2 every 4-6 hours as needed for severe pain, Naprosyn 1 twice a day with food for musculoskeletal anti-inflammatory pain, Norflex 1 twice a day for muscle spasm. Recommend follow-up with Dr. Mendez this coming week Return to emergency room with increasing pain especially increasing shortness of breath, increasing work of breathing any fevers chills or sweats nausea or vomiting difficulty urinating bloody urine or any worsening symptoms. Sepsis Event Note (ED) - Evaluation Sepsis Screening Result: No Definite Risk - Focused Exam Vital Signs: Vital Signs Temp Pulse Resp BP Pulse Ox 10/24/20 10:12 98.2 F 81 16 157/92 H 97 - My Orders Last 24 Hours: My Active Orders 10/24/20 10:45 Orphenadrine [Norflex] 100 mg PO BID - Assessment/Plan Last 24 Hours: My Active Orders 10/24/20 10:45 Orphenadrine [Norflex] 100 mg PO BID
[2020-10-24] MEDS ORDERED: Orphenadrine 100 MG Tab.ER PO SCH (10:45)
[2020-10-24] MEDS ORDERED: Ketorolac 10 MG Tab PO ONE (10:47)
== END 2020-10-24 12:20 | disposition home or self-care (01) ==
LOC: JD.ED 09:57
DX: R10.9 Unspecified abdominal pain (principal); E11.9 Type 2 diabetes mellitus without complications; I10 Essential (primary) hypertension; Z79.82 Long term (current) use of aspirin; Z79.899 Other long term (current) drug therapy
CPT/HCPCS: 36415; 80053; 85025; 85379; 99284; A9270

== ENCOUNTER 2021-04-28 12:19 | Emergency (ER) | payer MEDICAID, MEDICARE ==
--- NOTE | 2021-04-28 12:30 | EDM.PDOC ---
ED HPI GENERAL MEDICAL PROBLEM - General Chief Complaint: Cardiovascular Problem Stated Complaint: CATY AMB Time Seen by Provider: 04/28/21 12:19 - History of Present Illness INITIAL COMMENTS - FREE TEXT/NARRATIVE: 65-year-old brought in by EMS that was found to be in SVT. Patient thought maybe he was having a heart attack he was eating at a [employer] EMS arrived found to be in SVT gave him 6 mg of adenosine and he converted back into a normal sinus rate in the 80s.. For approximately 45 minutes 1 hour prior to showing up at the [place] restaurant the patient had some nausea chest discomfort he really does not describe a pain at this time but did have some pain prior to the chemical cardioversion. At this time he says he just does not feel right and has a hard time describing it. He does have some nausea persistent denies significant chest pressure or discomfort but he just does not think he is right. Patient has a significant history of type 2 diabetes. He had an episode of SVT about 4 years ago. He had elevated heart enzymes in the past but later determined he did not have a heart attack. Patient quit smoking when he was 21. He does not know his family history of was adopted when he was 4 years old. Patient drinks a couple beers nightly no illicit drugs. The patient has had his Covid vaccine in the booster. - Related Data Allergies Allergy/AdvReac Type Severity Reaction Status Date / Time No Known Allergies Allergy Verified 04/28/21 13:32 Home Meds: Home Meds Aspirin 81 mg PO BRK 11/18/15 [History] Lisinopril/Hydrochlorothiazide [Lisinopril-Hctz 20-12.5 mg Tab] 20 mg PO DAILY 11/18/15 [History] metFORMIN [Glucophage XR] 1,000 mg PO BID 01/16/17 [History] Diltiazem [Cardizem CD] 120 mg PO DAILY 04/28/21 [History] Empagliflozin [Jardiance] 25 mg PO DAILY 04/28/21 [History] FLUoxetine [PROzac] 40 mg PO DAILY 04/28/21 [History] Ondansetron [Zofran ODT] 4 mg SL Q4HR PRN 04/28/21 [History] Pantoprazole [ProTONIX] 40 mg PO DAILY 04/28/21 [History] atorvaSTATin [Lipitor] 20 mg PO DAILY 04/28/21 [History] Past Medical History HEENT History: Reports: Impaired Vision Other HEENT History: glasses Cardiovascular History: Reports: Afib, Hypertension Respiratory History: Reports: Asthma Genitourinary History: Reports: Other (See Below) Other Genitourinary History: trouble urinating Musculoskeletal History: Reports: Arthritis Psychiatric History: Reports: Anxiety Endocrine/Metabolic History: Reports: Diabetes, Type II - Infectious Disease History Infectious Disease History: Reports: Shingles - Past Surgical History HEENT Surgical History: Reports: Oral Surgery, Other (See Below) Other HEENT Surgeries/Procedures: 2 steel plates in jaw Cardiovascular Surgical History: Reports: None GI Surgical History: Reports: Cholecystectomy, Hernia, Abdominal Musculoskeletal Surgical History: Reports: ORIF Social & Family History - Family History Family Medical History: No Pertinent Family History - Caffeine Use Caffeine Use: Reports: Soda - Living Situation & Occupation Living situation: Reports: , with Significant Other (Girlfriend) Occupation: Employed ([employer]) ED ROS GENERAL - Review of Systems Review Of Systems: See Below Constitutional: Reports: No Symptoms HEENT: Reports: No Symptoms Respiratory: Reports: No Symptoms Cardiovascular: Reports: Chest Pain, Palpitations GI/Abdominal: Reports: Nausea : Reports: No Symptoms Musculoskeletal: Reports: No Symptoms Skin: Reports: No Symptoms Neurological: Reports: No Symptoms ED EXAM, GENERAL - Physical Exam Exam: See Below Exam Limited By: No Limitations General Appearance: Alert, No Apparent Distress, Other (Patient is pleasant very cooperative) Head: Atraumatic, Normocephalic Neck: Normal Inspection, Supple, Non-Tender, Full Range of Motion Respiratory/Chest: No Respiratory Distress, Lungs Clear, Normal Breath Sounds Cardiovascular: Regular Rate, Rhythm, No Edema, No Rub GI/Abdominal: Normal Bowel Sounds, Soft, Non-Tender Back Exam: Normal Inspection. No: CVA Tenderness (L), CVA Tenderness (R) Extremities: Normal Inspection, No Pedal Edema Neurological: Alert, Oriented, Normal Cognition #1 Interpretation EKG Date: 04/28/21 Rhythm: NSR [place]: Normal P-Wave: Present QRS: Normal ST-T: Other (Nonspecific nondiagnostic change) QT: Normal Comparison: No Change (No significant change from EKG done on 05/22/2020) EKG Interpretation Comments: Abnormal EKG Course - Vital Signs Last Recorded V/S: Last Vital Signs Temp 36.3 C 04/28/21 12:20 Pulse 76 04/28/21 15:37 Resp 16 04/28/21 12:20 BP 137/93 H 04/28/21 15:37 Pulse Ox 100 04/28/21 15:37 - Orders/Labs/Meds Labs: Laboratory Tests 04/28/21 04/28/21 04/28/21 Range/Units 12:22 12:22 12:22 WBC 8.61 (4.23-9.07) K/mm3 RBC 4.95 (4.63-6.08) M/mm3 Hgb 14.6 (13.7-17.5) gm/dl Hct 44.5 (40.1-51.0) % MCV 89.9 (79.0-92.2) fl MCH 29.5 (25.7-32.2) pg MCHC 32.8 (32.2-35.5) g/dl RDW Std Deviation 46.8 H (35.1-43.9) fL Plt Count 238 (163-337) K/mm3 MPV 11.2 (9.4-12.3) fl Neut % (Auto) 65.5 (34.0-67.9) % Lymph % (Auto) 24.7 (21.8-53.1) % Coal % (Auto) 8.9 (5.3-12.2) % Eos % (Auto) 0.6 L (0.8-7.0) Baso % (Auto) 0.2 (0.1-1.2) % Neut # (Auto) 5.63 H (1.78-5.38) K/mm3 Lymph # (Auto) 2.13 (1.32-3.57) K/mm3 Coal # (Auto) 0.77 (0.30-0.82) K/mm3 Eos # (Auto) 0.05 (0.04-0.54) K/mm3 Baso # (Auto) 0.02 (0.01-0.08) K/mm3 PT 10.7 (9.7-12.0) SECONDS INR 0.96 APTT 24.4 (21.7-31.4) SECONDS Sodium 136 (136-145) mEq/L Potassium 3.3 L (3.5-5.1) mEq/L Chloride 98 (98-107) mEq/L Carbon Dioxide 24 (21-32) mEq/L Anion Gap 17.3 H (5-15) BUN 27 H (7-18) mg/dL Creatinine 1.5 H (0.7-1.3) mg/dL Est Cr Clr Drug Dosing TNP Estimated GFR (MDRD) 47 (>60) mL/min BUN/Creatinine Ratio 18.0 (14-18) Glucose 171 H (70-99) mg/dL Calcium 9.5 (8.5-10.1) mg/dL Magnesium 1.9 (1.8-2.4) mg/dL Total Bilirubin 1.3 H (0.2-1.0) mg/dL AST 115 H (15-37) U/L ALT 113 H (16-63) U/L Alkaline Phosphatase 65 (46-116) U/L Troponin I < 0.017 (0.00-0.056) ng/mL Total Protein 7.9 (6.4-8.2) g/dl Albumin 3.6 (3.4-5.0) g/dl Globulin 4.3 gm/dL Albumin/Globulin Ratio 0.8 L (1-2) SARS-CoV-2 RNA (BECKY) (NEGATIVE) 04/28/21 04/28/21 Range/Units 12:50 15:10 WBC (4.23-9.07) K/mm3 RBC (4.63-6.08) M/mm3 Hgb (13.7-17.5) gm/dl Hct (40.1-51.0) % MCV (79.0-92.2) fl MCH (25.7-32.2) pg MCHC (32.2-35.5) g/dl RDW Std Deviation (35.1-43.9) fL Plt Count (163-337) K/mm3 MPV (9.4-12.3) fl Neut % (Auto) (34.0-67.9) % Lymph % (Auto) (21.8-53.1) % Coal % (Auto) (5.3-12.2) % Eos % (Auto) (0.8-7.0) Baso % (Auto) (0.1-1.2) % Neut # (Auto) (1.78-5.38) K/mm3 Lymph # (Auto) (1.32-3.57) K/mm3 [place] # (Auto) (0.30-0.82) K/mm3 Eos # (Auto) (0.04-0.54) K/mm3 Baso # (Auto) (0.01-0.08) K/mm3 PT (9.7-12.0) SECONDS INR APTT (21.7-31.4) SECONDS Sodium (136-145) mEq/L Potassium (3.5-5.1) mEq/L Chloride (98-107) mEq/L Carbon Dioxide (21-32) mEq/L Anion Gap (5-15) BUN (7-18) mg/dL Creatinine (0.7-1.3) mg/dL Est Cr Clr Drug Dosing Estimated GFR (MDRD) (>60) mL/min BUN/Creatinine Ratio (14-18) Glucose (70-99) mg/dL Calcium (8.5-10.1) mg/dL Magnesium (1.8-2.4) mg/dL Total Bilirubin (0.2-1.0) mg/dL AST (15-37) U/L ALT (16-63) U/L Alkaline Phosphatase (46-116) U/L Troponin I 0.123 H* (0.00-0.056) ng/mL Total Protein (6.4-8.2) g/dl Albumin (3.4-5.0) g/dl Globulin gm/dL Albumin/Globulin Ratio (1-2) SARS-CoV-2 RNA (BECKY) Negative (NEGATIVE) Meds: Medications Discontinued Medications Generic Name Dose Route Start Last Admin Trade Name Freq PRN Reason Stop Dose Admin Aspirin 324 mg 04/28/21 12:36 04/28/21 12:45 Aspirin 81 Mg Tab.Chew PO 04/28/21 12:37 324 mg ONETIME ONE Administration Magnesium Oxide 800 mg 04/28/21 13:16 04/28/21 14:09 Magnesium Oxide 400 Mg Tab PO 04/28/21 13:17 800 mg ONETIME ONE Administration Metoclopramide HCl 5 mg 04/28/21 12:51 04/28/21 13:59 Metoclopramide 10 Mg/2 Ml Sdv IVPUSH 04/28/21 12:52 5 mg ONETIME ONE Administration Potassium Chloride 40 meq 04/28/21 13:16 04/28/21 14:09 Potassium Chloride 20 Meq Tab.Er PO 04/28/21 13:17 40 meq ONETIME ONE Administration - Re-Assessments/Exams Free Text/Narrative Re-Assessment/Exam: 04/28/21 13:24 EKG is nondiagnostic troponin is below her detectable limits at this point the patient is feeling somewhat better he still has chest discomfort he has a hard time describing he denies pain denies pressure. He did receive Zofran in the ambulance for nausea this did not seem to help. Here he was given 5 mg of Reglan and this seems to help quite a bit with his nausea and we will recheck a troponin in 2 hours. 04/28/21 17:08 Patient is doing well at this time is absolutely symptom-free. Follow-up troponin did go up to 0.123 this could be related to his tachycardia. However, I did discuss it with Dr. Pineda on-call family services worker at [facility]. He agrees that this is probably due to the tachycardia recommends the patient restart his medication as he has been off his medication especially the diltiazem for several days now. And to follow-up with cardiology in 1 week. I did discuss this with the patient the patient feels good he believes he can resume his medications he has been off of these for 2 or 3 days because he is not felt well. Departure - Departure Time of Disposition: 17:09 Disposition: Home, Self-Care 01 Clinical Impression: Supraventricular tachycardia - Discharge Information Referrals: Papi Barboza MD [Primary Care Provider] - Forms: ED Department Discharge Additional Instructions: Return to the emergency room with any questions problems or worsening symptoms. Follow-up with cardiology in 1 week or sooner. As we discussed resume all your medications including the diltiazem and aspirin. And take as directed. Sepsis Event Note (ED) - Focused Exam Vital Signs: Vital Signs Temp Pulse Resp BP Pulse Ox 04/28/21 15:37 76 137/93 H 100 04/28/21 14:09 82 137/87 95 04/28/21 12:20 36.3 C 88 16 117/68 100
[2021-04-28] MEDS ORDERED: Aspirin 81 MG Tab.Chew PO ONE (12:36)
[2021-04-28] MEDS ORDERED: Metoclopramide 10 MG/2 ML SDV IVPUSH ONE (12:51)
[2021-04-28] MEDS ORDERED: Potassium Chloride 20 MEQ Tab.ER PO ONE (13:16)
[2021-04-28] MEDS ORDERED: Magnesium Oxide 400 MG Tab PO ONE (13:16)
--- NOTE | 2021-04-28 13:57 | CR ---
Chest: Frontal view of the chest was obtained. Comparison: Prior chest x-ray of 05/22/20. Heart size and mediastinum are normal. Lungs are clear with no acute parenchymal change. Minimal degenerative change is scattered within the spine. Impression: 1. Nothing acute is seen on frontal chest x-ray. Diagnostic code #2
[2021-04-28 15:45] VITALS: BP 137/93; PULSE 76
== END 2021-04-28 17:22 | disposition home or self-care (01) ==
LOC: JD.ED 12:19
DX: I47.1 Supraventricular tachycardia (principal); I48.91 Unspecified atrial fibrillation; I10 Essential (primary) hypertension; J45.909 Unspecified asthma, uncomplicated; M19.90 Unspecified osteoarthritis, unspecified site; E11.9 Type 2 diabetes mellitus without complications; R94.31 Abnormal electrocardiogram [ECG] [EKG]; Z79.82 Long term (current) use of aspirin; Z79.84 Long term (current) use of oral hypoglycemic drugs; Z79.899 Other long term (current) drug therapy; Z20.822 Contact with and (suspected) exposure to COVID-19
CPT/HCPCS: 36415; 71045; 80053; 83735; 84484; 85025; 85610; 85730; 93005; 96374; 99285; A9270; J2765; U0002; 93010

== ENCOUNTER 2021-06-15 03:12 | Emergency (ER) | payer MEDICARE ==
[2021-06-15] MEDS ORDERED: Sodium Chloride 0.9% 10 ML Syringe FLUSH PRN (03:22)
--- NOTE | 2021-06-15 03:37 | EDM.PDOC ---
ED HPI GENERAL MEDICAL PROBLEM - General Chief Complaint: Chest Pain Stated Complaint: CHRISTINA AMB Time Seen by Provider: 06/15/21 03:26 Source of Information: Reports: Patient, EMS History Limitations: Reports: No Limitations - History of Present Illness INITIAL COMMENTS - FREE TEXT/NARRATIVE: The patient presents by [facility] for chest pain and syncope. The patient was at work. He started feeling palpitations and then he was leaning against a shelf. He has a history of SVT. He had been given adenosine before to get him out of the SVT. When EMS arrived he was out of it. They gave him aspirin and brought him here. He is on cardizem now and his doctor went up with it recently. He has some chest pain after this. He has no shortness of breath. He has no fever, chills, cough, abdominal pain, nausea or vomiting. 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 Onset: Sudden Duration: Minutes: Location: Reports: Chest Quality: Reports: Sharp Severity: Mild Improves with: Reports: None, Rest Associated Symptoms: Reports: Chest Pain, Syncope. Denies: Cough, Fever/Chills, Headaches, Nausea/Vomiting Treatments PHYSICIAN OFFICE SECRETARY: Reports: Other (see below) Other Treatments PHYSICIAN OFFICE SECRETARY: total of 4 Baby ASA PHYSICIAN OFFICE SECRETARY Middle Chest Pain Score (Numeric/FACES): 6 - Related Data Allergies Allergy/AdvReac Type Severity Reaction Status Date / Time No Known Allergies Allergy Verified 06/15/21 03:22 Home Meds: Home Meds Aspirin 81 mg PO BRK 11/18/15 [History] Lisinopril/Hydrochlorothiazide [Lisinopril-Hctz 20-12.5 mg Tab] 20 mg PO DAILY 11/18/15 [History] metFORMIN [Glucophage XR] 1,000 mg PO BID 01/16/17 [History] Diltiazem [Cardizem CD] 120 mg PO DAILY 04/28/21 [History] Empagliflozin [Jardiance] 25 mg PO DAILY 04/28/21 [History] FLUoxetine [PROzac] 40 mg PO DAILY 04/28/21 [History] atorvaSTATin [Lipitor] 20 mg PO DAILY 04/28/21 [History] Past Medical History HEENT History: Reports: Impaired Vision Other HEENT History: glasses Cardiovascular History: Reports: Afib, Hypertension Respiratory History: Reports: Asthma Genitourinary History: Reports: Other (See Below) Other Genitourinary History: trouble urinating Musculoskeletal History: Reports: Arthritis Psychiatric History: Reports: Anxiety Endocrine/Metabolic History: Reports: Diabetes, Type II - Infectious Disease History Infectious Disease History: Reports: Shingles - Past Surgical History HEENT Surgical History: Reports: Oral Surgery, Other (See Below) Other HEENT Surgeries/Procedures: 2 steel plates in jaw Cardiovascular Surgical History: Reports: None GI Surgical History: Reports: Cholecystectomy, Hernia, Abdominal Musculoskeletal Surgical History: Reports: ORIF Social & Family History - Family History Family Medical History: No Pertinent Family History - Caffeine Use Caffeine Use: Reports: Coffee - Living Situation & Occupation Living situation: Reports: , with Significant Other (Girlfriend) Occupation: Employed ([employer]) ED ROS GENERAL - Review of Systems Review Of Systems: See Below Constitutional: Reports: No Symptoms HEENT: Reports: No Symptoms Respiratory: Reports: No Symptoms Cardiovascular: Reports: Chest Pain, Syncope Endocrine: Reports: No Symptoms GI/Abdominal: Reports: No Symptoms : Reports: No Symptoms Musculoskeletal: Reports: No Symptoms Skin: Reports: Pruritis Neurological: Reports: No Symptoms ED EXAM, GENERAL - Physical Exam Exam: See Below Exam Limited By: No Limitations General Appearance: Alert, No Apparent Distress Ears: Normal External Exam Nose: Normal Inspection Head: Atraumatic, Normocephalic Neck: Normal Inspection Respiratory/Chest: No Respiratory Distress, Lungs Clear, Normal Breath Sounds Cardiovascular: Regular Rate, Rhythm, No Edema, No Murmur, No Rub GI/Abdominal: Soft, Non-Tender, No Organomegaly #1 Interpretation EKG Date: 06/15/21 Time: 03:18 Rhythm: NSR Rate (Beats/Min): 63 [place]: Normal P-Wave: Present QRS: Normal ST-T: Normal QT: Normal Course - Vital Signs Last Recorded V/S: Last Vital Signs Temp 96.7 F L 06/15/21 03:14 Pulse 56 L 06/15/21 05:00 Resp 18 06/15/21 05:00 BP 119/52 L 06/15/21 05:00 Pulse Ox 96 06/15/21 04:30 - Orders/Labs/Meds Orders: Active Orders 24 hr Category Date Time Status Cardiac Monitoring [RC] . DIRECTED Care 06/15/21 03:22 Active Peripheral IV Care [RC] . DIRECTED Care 06/15/21 03:23 Active Chest 1V Frontal [CR] Stat Exams 06/15/21 03:22 Taken Sodium Chloride 0.9% [Saline Flush] Med 06/15/21 03:22 Active 10 ml FLUSH ASDIRECTED PRN Peripheral IV Insertion Adult [OM.PC] Stat Oth 06/15/21 03:22 Ordered Medication Orders Sodium Chloride (Sodium Chloride 0.9% 10 Ml Syringe) 10 ml FLUSH ASDIRECTED PRN PRN Reason: Keep Vein Open Last Admin: 06/15/21 03:45 Dose: 10 ml Documented by: SHANNAN Labs: Laboratory Tests 06/15/21 06/15/21 06/15/21 Range/Units 03:25 03:25 03:25 WBC 9.21 H (4.23-9.07) K/mm3 RBC 4.83 (4.63-6.08) M/mm3 Hgb 14.8 (13.7-17.5) gm/dl Hct 43.1 (40.1-51.0) % MCV 89.2 (79.0-92.2) fl MCH 30.6 (25.7-32.2) pg MCHC 34.3 (32.2-35.5) g/dl RDW Std Deviation 48.5 H (35.1-43.9) fL Plt Count 222 (163-337) K/mm3 MPV 11.1 (9.4-12.3) fl Neut % (Auto) 59.3 (34.0-67.9) % Lymph % (Auto) 25.7 (21.8-53.1) % [place] % (Auto) 11.6 (5.3-12.2) % Eos % (Auto) 2.6 (0.8-7.0) Baso % (Auto) 0.7 (0.1-1.2) % Neut # (Auto) 5.46 H (1.78-5.38) K/mm3 Lymph # (Auto) 2.37 (1.32-3.57) K/mm3 [place] # (Auto) 1.07 H (0.30-0.82) K/mm3 Eos # (Auto) 0.24 (0.04-0.54) K/mm3 Baso # (Auto) 0.06 (0.01-0.08) K/mm3 PT 10.7 (9.7-12.0) SECONDS INR 0.96 D-Dimer, Quantitative 0.35 (0.19-0.50) mg/L Sodium 139 (136-145) mEq/L Potassium 3.1 L (3.5-5.1) mEq/L Chloride 100 (98-107) mEq/L Carbon Dioxide 23 (21-32) mEq/L Anion Gap 19.1 H (5-15) BUN 19 H (7-18) mg/dL Creatinine 1.6 H (0.7-1.3) mg/dL Est Cr Clr Drug Dosing 44.53 mL/min Estimated GFR (MDRD) 44 (>60) mL/min BUN/Creatinine Ratio 11.9 L (14-18) Glucose 131 H (70-99) mg/dL Calcium 9.9 (8.5-10.1) mg/dL Magnesium 1.4 L (1.8-2.4) mg/dL Total Bilirubin 0.8 (0.2-1.0) mg/dL AST 43 H (15-37) U/L ALT 77 H (16-63) U/L Alkaline Phosphatase 61 (46-116) U/L Troponin I < 0.017 (0.00-0.056) ng/mL Total Protein 7.9 (6.4-8.2) g/dl Albumin 3.7 (3.4-5.0) g/dl Globulin 4.2 gm/dL Albumin/Globulin Ratio 0.9 L (1-2) 06/15/21 Range/Units 05:30 WBC (4.23-9.07) K/mm3 RBC (4.63-6.08) M/mm3 Hgb (13.7-17.5) gm/dl Hct (40.1-51.0) % MCV (79.0-92.2) fl MCH (25.7-32.2) pg MCHC (32.2-35.5) g/dl RDW Std Deviation (35.1-43.9) fL Plt Count (163-337) K/mm3 MPV (9.4-12.3) fl Neut % (Auto) (34.0-67.9) % Lymph % (Auto) (21.8-53.1) % [place] % (Auto) (5.3-12.2) % Eos % (Auto) (0.8-7.0) Baso % (Auto) (0.1-1.2) % Neut # (Auto) (1.78-5.38) K/mm3 Lymph # (Auto) (1.32-3.57) K/mm3 [place] # (Auto) (0.30-0.82) K/mm3 Eos # (Auto) (0.04-0.54) K/mm3 Baso # (Auto) (0.01-0.08) K/mm3 PT (9.7-12.0) SECONDS INR D-Dimer, Quantitative (0.19-0.50) mg/L Sodium (136-145) mEq/L Potassium (3.5-5.1) mEq/L Chloride (98-107) mEq/L Carbon Dioxide (21-32) mEq/L Anion Gap (5-15) BUN (7-18) mg/dL Creatinine (0.7-1.3) mg/dL Est Cr Clr Drug Dosing mL/min Estimated GFR (MDRD) (>60) mL/min BUN/Creatinine Ratio (14-18) Glucose (70-99) mg/dL Calcium (8.5-10.1) mg/dL Magnesium (1.8-2.4) mg/dL Total Bilirubin (0.2-1.0) mg/dL AST (15-37) U/L ALT (16-63) U/L Alkaline Phosphatase (46-116) U/L Troponin I < 0.017 (0.00-0.056) ng/mL Total Protein (6.4-8.2) g/dl Albumin (3.4-5.0) g/dl Globulin gm/dL Albumin/Globulin Ratio (1-2) Meds: Medications Generic Name Dose Route Start Last Admin Trade Name Freq PRN Reason Stop Dose Admin Sodium Chloride 10 ml 06/15/21 03:22 06/15/21 03:45 Sodium Chloride 0.9% 10 Ml Syringe FLUSH 10 ml ASDIRECTED PRN Administration Keep Vein Open Discontinued Medications Generic Name Dose Route Start Last Admin Trade Name Freq PRN Reason Stop Dose Admin Sodium Chloride 1,000 mls @ 1,000 mls/hr 06/15/21 04:09 06/15/21 04:13 Normal Saline IV 06/15/21 05:08 1,000 mls/hr ONETIME ONE Administration - Re-Assessments/Exams Free Text/Narrative Re-Assessment/Exam: 06/15/21 03:37 I ordered an IV saline lock, EKG, CXR and labs. He was given aspirin by EMS. 06/15/21 06:05 His CXR looks good. His EKG shows a NSR with no acute changes. His CBC looks good. His K was a little low at 3.1. His anion gap was elevated at 19.1. His creatinine was elevated at 1.6. His glucose was elevated at 131. His magnesium was a little low at 1.4. His AST is elevated at 43. His ALT is elevated at 77. His troponin is negative. I had him wait 3 hours and I did a repeat troponin and it is negative. He had no more runs of SVT. I will discharge him home and have him follow up with his doctor. Departure - Departure Time of Disposition: 06:10 Disposition: Home, Self-Care 01 Condition: Good Clinical Impression: SVT (supraventricular tachycardia) Syncope Qualifiers: Syncope type: unspecified Qualified Code(s): R55 - Syncope and collapse Chest pain Qualifiers: Chest pain type: unspecified Qualified Code(s): R07.9 - Chest pain, unspecified Referrals: Papi Barboza MD [Primary Care Provider] - 1 Week Forms: ED Department Discharge Additional Instructions: Drink plenty of fluids. Take a multivitamin. Some of your electrolytes were a little low. Take your medications as prescribed. Follow up with your doctor and talk about possibly getting an ablation. Please return if you are worse. Sepsis Event Note (ED) - Evaluation Sepsis Screening Result: No Definite Risk - Focused Exam Vital Signs: Vital Signs Temp Pulse Resp BP Pulse Ox 06/15/21 05:00 56 L 18 119/52 L 06/15/21 04:30 60 18 124/70 96 06/15/21 04:00 61 123/72 99 06/15/21 03:30 64 18 125/74 97 06/15/21 03:14 96.7 F L 70 16 126/74 99 - My Orders Last 24 Hours: My Active Orders 06/15/21 03:22 Cardiac Monitoring [RC] . DIRECTED Chest 1V Frontal [CR] Stat Sodium Chloride 0.9% [Saline Flush] 10 ml FLUSH ASDIRECTED PRN Peripheral IV Insertion Adult [OM.PC] Stat 06/15/21 03:23 Peripheral IV Care [RC] . DIRECTED - Assessment/Plan Last 24 Hours: My Active Orders 06/15/21 03:22 Cardiac Monitoring [RC] . DIRECTED Chest 1V Frontal [CR] Stat Sodium Chloride 0.9% [Saline Flush] 10 ml FLUSH ASDIRECTED PRN Peripheral IV Insertion Adult [OM.PC] Stat 06/15/21 03:23 Peripheral IV Care [RC] . DIRECTED
[2021-06-15] MEDS ORDERED: Sodium Chloride 0.9% 1,000 ML IV ONE (04:09)
[2021-06-15 06:26] VITALS: BP 122/70; PULSE 66
--- NOTE | 2021-06-15 10:26 | CR ---
EXAM: XR CHEST 1 VIEW LOCATION: [facility] [place] DATE/TIME: 06/15/2021 3:53 AM INDICATION: Chest pain COMPARISON: None. IMPRESSION: Heart size is normal. No evidence of pneumonia or heart failure. No visible pneumothorax or pleural effusion. Degenerative spurring at the acromioclavicular joints with undersurface acromial spurring which can cause rotator cuff impingement symptoms. SIGNED BY: Papi Conrad MD 06/15/2021 5:08 AM ALDA
== END 2021-06-15 06:23 | disposition home or self-care (01) ==
LOC: JD.ED 03:12
DX: I47.1 Supraventricular tachycardia (principal); I10 Essential (primary) hypertension; E11.9 Type 2 diabetes mellitus without complications; Z79.82 Long term (current) use of aspirin; Z79.84 Long term (current) use of oral hypoglycemic drugs; Z79.899 Other long term (current) drug therapy
CPT/HCPCS: 36415; 71045; 80053; 83735; 84484; 85025; 85379; 85610; 93005; 99285; J7030

== ENCOUNTER 2022-06-02 14:56 | Emergency (ER) | payer MEDICARE ==
[2022-06-02 15:10] VITALS: BP 151/93; PULSE 65
[2022-06-02] MEDS ORDERED: Metoclopramide 10 MG/2 ML SDV IVPUSH ONE (15:36)
[2022-06-02] MEDS ORDERED: LORazepam 2 MG/ML SDV IVPUSH ONE ×2 (15:36→16:51)
[2022-06-02] MEDS ORDERED: diphenhydrAMINE 50 MG/ML SDV IVPUSH ONE (15:37)
[2022-06-02] MEDS ORDERED: Dextrose 5%-Lactated Ringers 1,000 ML IV SCH (15:45)
[2022-06-02] MEDS ORDERED: Promethazine 25 MG in Sodium Chloride 0.9% 50 ML IV ONE (16:51)
[2022-06-02] MEDS ORDERED: HYDROmorphone 0.5 MG/0.5 ML Syringe IVPUSH ONE (16:52)
[2022-06-02 16:58] LABS: HEMOGLOBIN A1C 6.1 %
[2022-06-02 17:09] LABS: ESTIMATED GFR 55 mL/min (>60)
[2022-06-02] MEDS ORDERED: Magnesium Sulfate/Water 2 GM in Premix Bag 1 BAG IV ONE (17:36)
[2022-06-02] MEDS ORDERED: Dextrose 5%-0.9% NaCl 1,000 ML IV SCH (17:45)
[2022-06-02] MEDS: Potassium Chloride 10 MEQ in Premix Bag 1 BAG IV SCH ×3 (18:04→20:45)
[2022-06-02] MEDS ORDERED: LORazepam 2 MG/ML SDV IVPUSH PRN (19:27)
[2022-06-02] MEDS ORDERED: Metoclopramide 10 MG/2 ML SDV IVPUSH PRN (19:28)
[2022-06-02] MEDS ORDERED: Lactated Ringers 1,000 ML IV SCH (19:30)
== END 2022-06-03 12:20 | disposition home or self-care (01) ==
LOC: JD.ED 14:56
DX: E86.0 Dehydration (principal); F10.139 Alcohol abuse with withdrawal, unspecified; I48.91 Unspecified atrial fibrillation; I10 Essential (primary) hypertension; E11.9 Type 2 diabetes mellitus without complications; Z79.899 Other long term (current) drug therapy; Z79.84 Long term (current) use of oral hypoglycemic drugs; Z87.891 Personal history of nicotine dependence
CPT/HCPCS: 36415; 80053; 81001; 82009; 82977; 83036; 83605; 83690; 83735; 83880; 84484; 85025; 85610; 85730; 86140; 93005; 96361; 96365; 96366; 96367; 96368; 96375; 96376; 99284; J1170; J1200; J2060; J2550; J2765; J3475; J3480; J7042; J7120; J7121

== ENCOUNTER 2022-10-11 16:31 | Emergency (ER) | payer MEDICARE, MEDICAID ==
[2022-10-11] MEDS ORDERED: LORazepam 2 MG/ML SDV IVPUSH ONE (17:09)
[2022-10-11] MEDS ORDERED: Prochlorperazine 10 MG/2 ML SDV IVPUSH ONE (17:09)
[2022-10-11] MEDS ORDERED: LORazepam 2 MG/ML SDV ONE (17:09)
[2022-10-11 17:18] LABS: BASOPHILS ABSOLUTE AUTO 0.01 K/mm3 (0.01-0.08); BASOPHILS PERCENT AUTO 0.1 % (0.1-1.2); EOSINOPHILS ABSOLUTE AUTO 0.02 K/mm3 (0.04-0.54); EOSINOPHILS PERCENT AUTO 0.1 (0.8-7.0); HEMOGLOBIN 16.1 gm/dl (13.7-17.5); IMMATURE GRAN ABSOLUTE AUTO 0.05 K/mm3 (0.00-0.10); IMMATURE GRAN PERCENT AUTO 0.3 % (<=1.0); LYMPHOCYTES ABSOLUTE AUTO 0.52 K/mm3 (1.32-3.57); LYMPHOCYTES PERCENT AUTO 3.3 % (21.8-53.1); MEAN CORPUSCULAR HEMOGLOBIN 31.8 pg (25.7-32.2); MEAN CORPUSCULAR VOLUME 90.9 fl (79.0-92.2); MEAN PLATELET VOLUME 11.5 fl (9.4-12.3); MONOCYTES ABSOLUTE AUTO 1.46 K/mm3 (0.30-0.82); MONOCYTES PERCENT AUTO 9.3 % (5.3-12.2); NEUTROPHILS PERCENT AUTO 86.9 % (34.0-67.9); PLATELET COUNT,PLT 241 K/mm3 (163-337); RED BLOOD CELL COUNT 5.06 M/mm3 (4.63-6.08); WHITE BLOOD CELL COUNT,WBC 15.66 K/mm3 (4.23-9.07)
[2022-10-11 17:21] LABS: A/G RATIO 0.8 (1-2); ALANINE AMINOTRANSFERASE,ALT 95 U/L (16-63); ALBUMIN 3.8 g/dl (3.4-5.0); ALKALINE PHOSPHATASE 98 U/L (46-116); ANION GAP 24.7 (5-15); ASPARTATE AMNIOTRANSFERASE,AST 70 U/L (15-37); BILIRUBIN TOTAL 1.3 mg/dL (0.2-1.0); BLOOD UREA NITROGEN,BUN 15 mg/dL (7-18); BUN/CREATININE RATIO 11.5 (14-18); CALCIUM 9.2 mg/dL (8.5-10.1); CARBON DIOXIDE,CO2 17 mEq/L (21-32); CHLORIDE,CL 101 mEq/L (98-107); CREATININE 1.3 mg/dL (0.7-1.3); ESTIMATED GFR 61 mL/min (>60); GLUCOSE RANDOM 251 mg/dL (70-99); POTASSIUM,K 3.7 mEq/L (3.5-5.1); PROTEIN TOTAL,TP 8.6 g/dl (6.4-8.2); SODIUM,NA 139 mEq/L (136-145)
[2022-10-11] MEDS ORDERED: Sodium Chloride 0.9% 10 ML Syringe FLUSH ONE (17:38)
[2022-10-11] MEDS ORDERED: Iopamidol 755 Mg/ML 100 ML Bottle IVPUSH ONE (17:38)
[2022-10-11] MEDS ORDERED: Labetalol 100 MG/20 ML MDV IVPUSH ONE (17:40)
[2022-10-11] MEDS ORDERED: Sodium Chloride 0.9% 100 ML IV SCH (17:45)
[2022-10-11 19:45] VITALS: BP 181/93; PULSE 90
== END 2022-10-11 18:09 | disposition other institution (70) ==
LOC: JD.ED 16:31
DX: I62.9 Nontraumatic intracranial hemorrhage, unspecified (principal); I10 Essential (primary) hypertension; E78.5 Hyperlipidemia, unspecified; K21.9 Gastro-esophageal reflux disease without esophagitis; E11.9 Type 2 diabetes mellitus without complications; J45.909 Unspecified asthma, uncomplicated; Z79.899 Other long term (current) drug therapy; Z79.84 Long term (current) use of oral hypoglycemic drugs
CPT/HCPCS: 36415; 70450; 70496; 71045; 80053; 80307; 82947; 85025; 93005; 96374; 96375; 99285; J0780; J2060; J3490; Q9967

== ENCOUNTER 2023-02-02 23:59 | Emergency (ER) | payer MEDICARE, MEDICAID ==
[2023-02-03] MEDS ORDERED: Ondansetron 4 MG/2 ML SDV IVPUSH ONE (00:13)
[2023-02-03] MEDS ORDERED: Ondansetron 4 MG/2 ML SDV ONE (00:14)
[2023-02-03] MEDS ORDERED: Iopamidol 755 Mg/ML 100 ML Bottle IVPUSH ONE (00:18)
[2023-02-03 00:29] LABS: INR 1.01; PROTHROMBIN TIME 10.8 SECONDS (9.7-12.0)
[2023-02-03 00:30] LABS: PTT,PARTIAL THROMBOPLSTIN TIME 25.1 SECONDS (21.7-31.4)
[2023-02-03] MEDS ORDERED: Sodium Chloride 0.9% 50 ML IV SCH (00:30)
[2023-02-03 00:33] LABS: BASOPHILS ABSOLUTE AUTO 0.1 K/mm3 (0.0-0.2); BASOPHILS PERCENT AUTO 0.5 % (0.0-1.0); EOSINOPHILS ABSOLUTE AUTO 0.1 K/mm3 (0.0-0.4); EOSINOPHILS PERCENT AUTO 0.9 % (0.0-6.0); HEMATOCRIT 38.2 % (42.0-52.0); HEMOGLOBIN 13.6 gm/dl (14.0-18.0); IMMATURE GRAN ABSOLUTE AUTO 0.03 K/mm3 (0.00-0.05); IMMATURE GRAN PERCENT AUTO 0.3 % (0.0-0.4); LYMPHOCYTES ABSOLUTE AUTO 3.3 K/mm3 (1.0-4.8); LYMPHOCYTES PERCENT AUTO 30.7 % (24.0-44.0); MEAN CORPUSCULAR HEMOGLOBIN 30.1 pg (28.0-32.0); MEAN CORPUSCULAR HGB CONC 35.6 g/dl (32.0-36.0); MEAN CORPUSCULAR VOLUME 84.5 fl (83.0-99.0); MEAN PLATELET VOLUME 10.9 fl (9.4-12.4); MONOCYTES ABSOLUTE AUTO 0.8 K/mm3 (0.0-0.8); MONOCYTES PERCENT AUTO 7.2 % (0.0-8.0); NEUTROPHILS ABSOLUTE AUTO 6.4 K/mm3 (1.8-7.7); NEUTROPHILS PERCENT AUTO 60.4 % (41.0-71.0); PLATELET COUNT,PLT 280 K/mm3 (150-400); RED BLOOD CELL COUNT 4.52 M/mm3 (4.52-5.90); WHITE BLOOD CELL COUNT,WBC 10.59 K/mm3 (3.9-11.3)
[2023-02-03 00:36] LABS: ALANINE AMINOTRANSFERASE,ALT 86 U/L (16-63); ALBUMIN 3.7 g/dl (3.4-5.0); ALKALINE PHOSPHATASE 77 U/L (46-116); ANION GAP 19.5 (5-15); ASPARTATE AMNIOTRANSFERASE,AST 43 U/L (15-37); BILIRUBIN TOTAL 0.9 mg/dL (0.2-1.0); BLOOD UREA NITROGEN,BUN 13 mg/dL (7-18); BUN/CREATININE RATIO 10.8 (14-18); CARBON DIOXIDE,CO2 23 mEq/L (21-32); CHLORIDE,CL 99 mEq/L (98-107); CREATININE 1.2 mg/dL (0.7-1.3); ESTIMATED GFR 66 mL/min (>60); GLUCOSE RANDOM 160 mg/dL (70-99); LIPASE 70 U/L (73-393); POTASSIUM,K 3.5 mEq/L (3.5-5.1); PROTEIN TOTAL,TP 7.5 g/dl (6.4-8.2); SODIUM,NA 138 mEq/L (136-145); TROPONIN I HIGH SENSITIVITY 16 pg/mL (<=76)
[2023-02-03] MEDS ORDERED: levETIRAcetam 2,000 MG in Sodium Chloride 0.9% 100 ML IV ONE (01:20)
[2023-02-03] MEDS ORDERED: Acetaminophen 325 MG Tab PO ONE (06:15)
[2023-02-03 12:34] VITALS: BP 163/94; PULSE 60
== END 2023-02-03 12:30 | disposition home or self-care (01) ==
LOC: JD.ED 23:59
DX: R56.9 Unspecified convulsions (principal); I10 Essential (primary) hypertension; I48.91 Unspecified atrial fibrillation; J45.909 Unspecified asthma, uncomplicated; E11.9 Type 2 diabetes mellitus without complications
CPT/HCPCS: 36415; 70450; 70496; 70498; 71045; 80053; 82947; 83690; 84484; 85025; 85610; 85730; 93005; 96365; 96375; 99285; A9270; J1953; J2405; J3490; Q9967

== ENCOUNTER 2023-04-17 16:10 | Emergency (ER) | payer MEDICARE, MEDICAID ==
[2023-04-17] MEDS ORDERED: Sodium Chloride 0.9% 10 ML Syringe FLUSH PRN (17:10)
[2023-04-17] MEDS ORDERED: Sodium Chloride 0.9% 1,000 ML IV SCH (17:15)
[2023-04-17 18:18] LABS: BASOPHILS PERCENT AUTO 0.3 % (0.0-1.0); EOSINOPHILS ABSOLUTE AUTO 0.1 K/mm3 (0.0-0.4); EOSINOPHILS PERCENT AUTO 0.6 % (0.0-6.0); HEMATOCRIT 32.9 % (42.0-52.0); HEMOGLOBIN 11.8 gm/dl (14.0-18.0); IMMATURE GRAN ABSOLUTE AUTO 0.05 K/mm3 (0.00-0.05); IMMATURE GRAN PERCENT AUTO 0.5 % (0.0-0.4); LYMPHOCYTES ABSOLUTE AUTO 1.1 K/mm3 (1.0-4.8); LYMPHOCYTES PERCENT AUTO 10.4 % (24.0-44.0); MEAN CORPUSCULAR HEMOGLOBIN 32.2 pg (28.0-32.0); MEAN CORPUSCULAR HGB CONC 35.9 g/dl (32.0-36.0); MEAN CORPUSCULAR VOLUME 89.6 fl (83.0-99.0); MEAN PLATELET VOLUME 10.3 fl (9.4-12.4); MONOCYTES ABSOLUTE AUTO 0.7 K/mm3 (0.0-0.8); MONOCYTES PERCENT AUTO 6.2 % (0.0-8.0); PLATELET COUNT,PLT 232 K/mm3 (150-400); RED BLOOD CELL COUNT 3.67 M/mm3 (4.52-5.90); WHITE BLOOD CELL COUNT,WBC 10.93 K/mm3 (3.9-11.3)
[2023-04-17 18:42] LABS: A/G RATIO 1.1 (1-2); ALANINE AMINOTRANSFERASE,ALT 63 U/L (16-63); ALBUMIN 3.6 g/dl (3.4-5.0); ALKALINE PHOSPHATASE 56 U/L (46-116); ANION GAP 21.8 (5-15); ASPARTATE AMNIOTRANSFERASE,AST 36 U/L (15-37); BILIRUBIN TOTAL 0.8 mg/dL (0.2-1.0); BLOOD UREA NITROGEN,BUN 13 mg/dL (7-18); BUN/CREATININE RATIO 9.3 (14-18); C-REACTIVE PROTEIN <0.2 mg/dL (<1.0); CALCIUM 9.7 mg/dL (8.5-10.1); CARBON DIOXIDE,CO2 19 mEq/L (21-32); CHLORIDE,CL 98 mEq/L (98-107); CREATININE 1.4 mg/dL (0.7-1.3); ESTIMATED GFR 55 mL/min (>60); GLUCOSE RANDOM 152 mg/dL (70-99); MAGNESIUM 1.1 mg/dL (1.8-2.4); POTASSIUM,K 2.8 mEq/L (3.5-5.1); SODIUM,NA 136 mEq/L (136-145)
[2023-04-17] MEDS ORDERED: Magnesium Sulfate/Water 2 GM in Premix Bag 1 BAG IV ONE (18:46)
[2023-04-17] MEDS ORDERED: Potassium Chloride 20 MEQ Tab.ER PO ONE (18:46)
[2023-04-17] MEDS ORDERED: Magnesium Sulfate/Water 50 ML ONE (18:52)
[2023-04-17 21:28] LABS: APPEARANCE,URINE CLEAR (Clear); BILIRUBIN,URINE NEGATIVE (Negative); COLOR,URINE YELLOW (Yellow); GLUCOSE,URINE NEGATIVE (Negative); KETONES,URINE NEGATIVE (Negative); LEUKOCYTE ESTERASE,URINE NEGATIVE (Negative); NITRITE,URINE POSITIVE (Negative); OCCULT BLOOD,URINE NEGATIVE (Negative); PH,URINE 6.5 (5.0-8.0); PROTEIN,URINE TRACE (Negative)
[2023-04-17 21:38] LABS: BACTERIA,URINE MODERATE /hpf (FEW); MUCUS,URINE NOT SEEN /hpf (FEW); RBC,URINE 0-5 /hpf (0-5); SQUAMOUS EPITHELIAL CELLS,UR 0-5 /hpf (0-5); WBC,URINE 0-5 /hpf (0-5)
[2023-04-17] MEDS ORDERED: Nitrofurantoin Monohydrate/Macrocrystalline 100 MG Cap PO ONE (23:53)
[2023-04-18 05:08] VITALS: PULSE 66
[2023-04-18] MEDS ORDERED: levETIRAcetam Soln 500 MG/5 ML Cup PO ONE (07:10)
[2023-04-18 09:42] VITALS: BP 170/91
== END 2023-04-18 09:35 | disposition home or self-care (01) ==
LOC: JD.ED 16:10
DX: E83.42 Hypomagnesemia (principal); E87.6 Hypokalemia; R56.9 Unspecified convulsions; I48.91 Unspecified atrial fibrillation; I10 Essential (primary) hypertension; J45.909 Unspecified asthma, uncomplicated; E11.9 Type 2 diabetes mellitus without complications; Z79.899 Other long term (current) drug therapy; Z79.84 Long term (current) use of oral hypoglycemic drugs; W18.30XA Fall on same level, unspecified, initial encounter; Y92.009 Unspecified place in unspecified non-institutional (private) residence as the place of occurrence of the external cause
CPT/HCPCS: 36415; 71046; 80053; 81001; 83605; 83735; 85025; 86140; 93005; 96361; 96365; 99285; A9270; J3475; J3490; J7030; 93010; 99283

== ENCOUNTER 2023-06-03 19:11 | Emergency (ER) | payer MEDICARE, MEDICAID ==
[2023-06-03] MEDS ORDERED: Sodium Chloride 0.9% 10 ML Syringe FLUSH PRN (19:27)
[2023-06-03 19:33] LABS: BASOPHILS PERCENT AUTO 0.4 % (0.0-1.0); EOSINOPHILS PERCENT AUTO 0.3 % (0.0-6.0); HEMATOCRIT 37.1 % (42.0-52.0); HEMOGLOBIN 12.8 gm/dl (14.0-18.0); IMMATURE GRAN ABSOLUTE AUTO 0.02 K/mm3 (0.00-0.05); IMMATURE GRAN PERCENT AUTO 0.3 % (0.0-0.4); LYMPHOCYTES ABSOLUTE AUTO 0.9 K/mm3 (1.0-4.8); LYMPHOCYTES PERCENT AUTO 13.7 % (24.0-44.0); MEAN CORPUSCULAR HGB CONC 34.5 g/dl (32.0-36.0); MEAN CORPUSCULAR VOLUME 92.8 fl (83.0-99.0); MEAN PLATELET VOLUME 10.3 fl (9.4-12.4); MONOCYTES ABSOLUTE AUTO 0.3 K/mm3 (0.0-0.8); MONOCYTES PERCENT AUTO 4.4 % (0.0-8.0); NEUTROPHILS ABSOLUTE AUTO 5.5 K/mm3 (1.8-7.7); NEUTROPHILS PERCENT AUTO 80.9 % (41.0-71.0); PLATELET COUNT,PLT 369 K/mm3 (150-400); WHITE BLOOD CELL COUNT,WBC 6.79 K/mm3 (3.9-11.3)
[2023-06-03 19:50] LABS: ALANINE AMINOTRANSFERASE,ALT 62 U/L (16-63); ALBUMIN 3.6 g/dl (3.4-5.0); ALKALINE PHOSPHATASE 70 U/L (46-116); ANION GAP 22.6 (5-15); ASPARTATE AMNIOTRANSFERASE,AST 40 U/L (15-37); BILIRUBIN TOTAL 1.1 mg/dL (0.2-1.0); BLOOD UREA NITROGEN,BUN 16 mg/dL (7-18); BUN/CREATININE RATIO 11.4 (14-18); CARBON DIOXIDE,CO2 18 mEq/L (21-32); CHLORIDE,CL 97 mEq/L (98-107); CREATININE 1.4 mg/dL (0.7-1.3); ESTIMATED GFR 55 mL/min (>60); GLUCOSE RANDOM 174 mg/dL (70-99); POTASSIUM,K 3.6 mEq/L (3.5-5.1); PROTEIN TOTAL,TP 7.3 g/dl (6.4-8.2); SODIUM,NA 134 mEq/L (136-145)
[2023-06-03] MEDS ORDERED: Sodium Chloride 0.9% 1,000 ML IV ONE (20:14)
[2023-06-03 20:20] VITALS: BP 136/78; PULSE 120
[2023-06-03] MEDS ORDERED: propofoL 100 ML ONE (20:37)
[2023-06-03] MEDS ORDERED: Succinylcholine 200 MG/10 ML MDV IV ONE (20:41)
[2023-06-03] MEDS ORDERED: Propofol 200 MG/20 ML SDV IVPUSH ONE (20:41)
[2023-06-03] MEDS ORDERED: Rocuronium 50 MG/5 ML Vial IVPUSH ONE (20:41)
[2023-06-03] MEDS ORDERED: Etomidate 2 MG/ML 20 ML SDV IVPUSH ONE (20:41)
[2023-06-03] MEDS ORDERED: Lidocaine 1% 10 ML MDV INJECT ONE (20:41)
[2023-06-03] MEDS ORDERED: Midazolam 1 MG/ML 5 ML SDV IVPUSH ONE (20:41)
[2023-06-03] MEDS ORDERED: fentaNYL 100 MCG/2 ML SDV IVPUSH ONE (20:41)
[2023-06-03] MEDS ORDERED: propofoL 100 ML IV SCH (20:45)
[2023-06-03] MEDS ORDERED: Phenylephrine 1% 10 MG/ML SDV ONE (20:49)
[2023-06-03] MEDS ORDERED: Sodium Chloride 0.9% 100 ML ONE (20:49)
[2023-06-03] MEDS ORDERED: Phenylephrine 1% 10 MG/ML SDV IVPUSH ONE (22:08)
== END 2023-06-03 21:08 | disposition other institution (70) ==
LOC: JD.ED 19:11
DX: I61.9 Nontraumatic intracerebral hemorrhage, unspecified (principal); I10 Essential (primary) hypertension; I48.91 Unspecified atrial fibrillation; J45.909 Unspecified asthma, uncomplicated; E11.9 Type 2 diabetes mellitus without complications; Z86.73 Personal history of transient ischemic attack (TIA), and cerebral infarction without residual deficits; Z90.49 Acquired absence of other specified parts of digestive tract; Z79.84 Long term (current) use of oral hypoglycemic drugs; Z79.899 Other long term (current) drug therapy
CPT/HCPCS: 31500; 36415; 70450; 80053; 80307; 82550; 85025; 93005; 96361; 96374; 99285; J0330; J2250; J2371; J2704; J3010; J3490; J7030; 36410; 93010